=== PATIENT | male | born 1960 | race Caucasian/White ===

== ENCOUNTER 2019-07-10 18:48 | Observation (INO) ==
--- OUTSIDE RECORDS SUMMARY | 2019-07-10 18:51 | External Medical Summary | Continuity of Care Document ---
:1960 Author Name Bryan Davis Address Unavailable Unavailable , Care Team Providers Name Role Phone Unavailable Unavailable Unavailable Fredy JULES Unavailable Unavailable Problems Iron deficiency anemia (280.9) (D50.9) Allergies and Adverse Reactions Allergy history not documented Medications Medications not documented Procedures Procedures not documented Immunizations Immunizations not documented Plan of Treatment Planned Observations Planned Goals not documented Results No Known Results Results not documented
[2019-07-10 19:28] LABS: Basophils # (auto) 0.02 K/uL (0-0.2); Basophils % (auto) 0.3 %; Eosinophils # (auto) 0.05 K/uL (0-0.5); Eosinophils % (auto) 0.7 %; Hematocrit (blood only) 41.4 % (42-52); Immature Granulocytes # (auto) 0.03 K/uL (0.00-0.02); Immature Granulocytes % (auto) 0.4 %; Lymphocytes # (auto) 1.51 K/uL (1.2-3.4); Lymphocytes % (auto) 20.6 %; Mean Corpuscular Hemoglobin 26.4 pg (25-34); Mean Corpuscular Hgb Conc 33.8 g/dL (32-36); Mean Corpuscular Volume 78.1 fL (80-100); Mean Platelet Volume 10.7 fL (7.4-10.4); Monocytes # (auto) 0.57 K/uL (0.11-0.59); Monocytes % (auto) 7.8 %; Neutrophils # (auto) 5.15 K/uL (1.4-6.5); Neutrophils % (auto) 70.2 %; Platelet Count 199 K/uL (130-400); RDW Standard Deviation 42.2 fL (36.4-46.3); White Blood Count 7.33 K/uL (4.8-10.8)
--- NOTE | 2019-07-10 19:28 | Emergency Department Note ---
Impression & Plan Syncope, Hypomagnesemia, Dehydration ED Provider Note NAME: CHRIS STERLING AGE: 59 SEX: M : 1960 ARRIVES VIA: Walk-In INFORMANT: Patient, ED PROVIDER(S): Erich Espino MD Chief Complaint: Syncope HPI: He does present from a friend's home. 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 The patient was at a friend's home he had reported drinking 1 beer but stated that he had been drinking fluids throughout the day. Patient had been standing for time in the sun and subseq uently did have an episode of syncope. The patient states that he did not have any symptoms prior. Unsure as to whether or not there was any true shaking but was not told he had a seizure but he is unsure. The patient denies any tongue biting, bowel or bladder incontinence. No history of seizures. Patient denies any chest pain, headache, shortness of breath, lower extremity swelling. Patien t has no prior history of heart or lung disease. Non-smoker. Patient did drink 2 bottles of water prior to arrival. He has not taken any blood thinning medications. Patient does not complain of pain. ROS: See HPI for pertinent positives and negatives. A total of 10 systems were reviewed and otherwise negative. Past medical history: See below Surgical history: See below Social history: See below Physical Exam: GENERAL: Well appearing, well nourished, NAD, non-toxic. EYE EXAM: Normal conjunctiva. PERRL, no anisocoria and EOM's grossly intact w/o pain. NECK: Supple, no nuchal rigidity, no adenopathy, non-tender. No signs of meningismus. LUNGS: Clear to auscultation. Normal chest wall mechanics. HEART: NSR, no MRG. ABDOMEN: Abdomen soft, non-tender, normo-active bowel sounds, no masses, no rebound or guarding. BACK: No CVA TTP. SKIN: No rashes and no bruising. UPPER EXTREMITIES: Upper extremities are grossly normal. LOWER EXTREMITIES: Grossly normal, no edema. NEURO EXAM: A&O x3, cranial nerves II-XII grossly intact, normal speech, moves all 4 extremities on command w/o issue. Differential diagnoses: Vasovagal event, dehydration, infection, hypoglycemia, electrolyte abnormalities, cardiac sources, intracerebral event, pulmonary embolism, seizure, toxicologic, neurologic, as well as other pathologies. Course: Patient was seen and evaluated the bedside. Full history physical exam was performed. EKG: Indication: Syncope Normal sinus rhythm, rate of 86, normal intervals, normal axis, T wave flattening in the high lateral leads. No priors for comparison. Imaging Studies: Radiology results as stated below per my review in the radiologist's interpretation: Cardiac monitoring: An order was placed for continuous cardiac monitoring. The monitor shows a rate of 75 with sinus rhythm. MDM: Patient does present with concern for syncope. This may be somewhat orthostatic as well as positional. The patient is also been outside during 1 of the warmer days of the year thus far. Patient has a normal white count. Normal hemoglobin. Kidney function may show a slightly elevated creatinine at 1.45. EKG shows nonspecific ST and T wave abnormality. No priors for comparison. Troponin is not detectable. The patient's mag is a touch low. The patient did receive IV fluids. I discussed with the patient that given the slight EKG abnormality with no priors for comparison I do not know if the patient would be low risk. I did discuss that we could do observation admission and telemetry versus very close outpatient follow-up and repeat blood work. Patient is agreeable to it to inpatient treatment this time. I did speak with the on-call hospitalist who agreed to further evaluate treat the patient. Patient was subsequently admitted to medicine service. 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 Beliefs That Will Affect Care: None Current Living Situation: Spouse Other Information That Helps Us Care for You: No Feels Safe at Home: Yes Safety Concerns: Feels Safe At This Time Smoking Status: Never smoker Hx Alcohol Use: Yes Alcohol type: beer Hx Substance Use: No Allergies Allergies Allergy/AdvReac Type Severity Reaction Status Date / Time grass pollen Allergy Mild Sneezing Verified 07/10/19 19:35 DUST MITES Allergy Mild Sneezing Uncoded 07/10/19 19:35 Home Meds Home Medications Medication Instructions Recorded Confirmed losartan 50 mg PO QAM 07/10/19 07/10/19 metformin 750 mg PO BID 07/10/19 07/10/19 omeprazole 20 mg PO DAILYBB 07/10/19 07/10/19 Results & Data (ED) Vital Signs Vital Signs - 24 hr 07/10/19 18:53 07/10/19 19:21 07/10/19 19:30 Temperature 36.6 C Temperature Source Oral Pulse Rate 82 Pulse Rate [Finger] 81 Pulse Rhythm Regular Pulse Rhythm [Finger] Pulse Strength Normal Respiratory Rate 18 20 Respiratory Effort / Characteristics Non-Labored Spontaneous Non-Labored Spontaneous Respiratory Depth Normal Normal Respiratory Pattern Regular Blood Pressure 150/74 H Blood Pressure [Left Arm] 131/77 Blood Pressure Mean 99 Blood Pressure Mean [Left Arm] 95 Blood Pressure Position Sitting Pulse Oximetry 97 97 99 Oxygen Delivery Method Room Air Room Air Room Air Sepsis Recent Fever Within 48 Hours No Sepsis Action Taken by Nursing No Action Required 07/10/19 20:47 07/10/19 22:03 Temperature Temperature Source Pulse Rate Pulse Rate [Finger] 78 69 Pulse Rhythm Pulse Rhythm [Finger] Regular Pulse Strength Respiratory Rate 20 18 Respiratory Effort / Characteristics Respiratory Depth Normal Respiratory Pattern Blood Pressure Blood Pressure [Left Arm] 136/70 135/74 Blood Pressure Mean Blood Pressure Mean [Left Arm] 92 94 Blood Pressure Position Pulse Oximetry 96 95 Oxygen Delivery Method Room Air Sepsis Recent Fever Within 48 Hours Sepsis Action Taken by Correction Medications Current Medication List: was personally reviewed by me Laboratory Data Attestation: I reviewed the patient's lab results. Result diagrams: 07/10/19 19:07 07/10/19 19:07 Lab Results 07/10/19 07/10/19 07/10/19 Range/Units 19:07 19:07 19:07 WBC 7.33 (4.8-10.8) K/uL RBC 5.30 (4.7-6.1) M/uL Hgb 14.0 (14.0-18.0) g/dL Hct 41.4 L (42-52) % MCV 78.1 L (80-100) fL MCH 26.4 (25-34) pg MCHC 33.8 (32-36) g/dL RDW Std Deviation 42.2 (36.4-46.3) fL RDW Coeff of Yamil 15.0 H (11.5-14.5) % Plt Count 199 (130-400) K/uL MPV 10.7 H (7.4-10.4) fL Immature Gran % (Auto) 0.4 % Neut % (Auto) 70.2 % Lymph % (Auto) 20.6 % [place] % (Auto) 7.8 % Eos % (Auto) 0.7 % Baso % (Auto) 0.3 % Immature Gran # (Auto) 0.03 H (0.00-0.02) K/uL Neut # (Auto) 5.15 (1.4-6.5) K/uL Lymph # (Auto) 1.51 (1.2-3.4) K/uL [place] # (Auto) 0.57 (0.11-0.59) K/uL Eos # (Auto) 0.05 (0-0.5) K/uL Baso # (Auto) 0.02 (0-0.2) K/uL PT 10.9 (9.0-12.0) Seconds INR 1.0 (0.9-1.1) APTT 24.4 (21.0-31.0) Seconds PTT Ratio 0.9 Sodium 140 (136-145) mmol/L Potassium 3.9 (3.5-5.1) mmol/L Chloride 103 (98-107) mmol/L Carbon Dioxide 25 (21-32) mmol/L Anion Gap 12.0 H (3-11) BUN 14 (7-18) mg/dl Creatinine 1.45 H (0.6-1.4) mg/dl Est Cr Clr Drug Dosing 68.3 ml/min Est GFR ( Amer) 60.2 Est GFR (Non-Af Amer) 52.0 BUN/Creatinine Ratio 9.4 L (10-20) Glucose 118 H (70-99) mg/dl Calcium 9.1 (8.5-10.1) mg/dl Magnesium 1.7 L (1.8-2.4) mg/dl Total Bilirubin 0.4 (0.2-1) mg/dl AST 17 (15-37) U/L ALT 37 (12-78) U/L Alkaline Phosphatase 87 (45-117) U/L Troponin I < 0.015 (0-0.045) ng/ml Total Protein 8.8 H (6.4-8.2) gm/dl Albumin 4.0 (3.4-5.0) gm/dl Globulin 4.8 H (2.5-4.0) gm/dl Albumin/Globulin Ratio 0.8 L (0.9-2) TSH 2.920 (0.300-4.500) uIu/ml Urine Color Urine Appearance (Clear) Urine pH (4.5-7.5) Ur Specific [place] (1.000-1.030) Urine Protein (Negative) Urine Glucose (UA) (Negative) Urine Ketones (Negative) Urine Blood (Negative) Urine Nitrite (Negative) Urine Bilirubin (Negative) Urine Urobilinogen (Negative) Ur Leukocyte Esterase (Negative) 07/10/19 07/10/19 Range/Units 19:55 21:47 WBC (4.8-10.8) K/uL RBC (4.7-6.1) M/uL Hgb (14.0-18.0) g/dL Hct (42-52) % MCV (80-100) fL MCH (25-34) pg MCHC (32-36) g/dL RDW Std Deviation (36.4-46.3) fL RDW Coeff of Yamil (11.5-14.5) % Plt Count (130-400) K/uL MPV (7.4-10.4) fL Immature Gran % (Auto) % Neut % (Auto) % Lymph % (Auto) % [place] % (Auto) % Eos % (Auto) % Baso % (Auto) % Immature Gran # (Auto) (0.00-0.02) K/uL Neut # (Auto) (1.4-6.5) K/uL Lymph # (Auto) (1.2-3.4) K/uL [place] # (Auto) (0.11-0.59) K/uL Eos # (Auto) (0-0.5) K/uL Baso # (Auto) (0-0.2) K/uL PT (9.0-12.0) Seconds INR (0.9-1.1) APTT (21.0-31.0) Seconds PTT Ratio Sodium (136-145) mmol/L Potassium (3.5-5.1) mmol/L Chloride (98-107) mmol/L Carbon Dioxide (21-32) mmol/L Anion Gap (3-11) BUN (7-18) mg/dl Creatinine (0.6-1.4) mg/dl Est Cr Clr Drug Dosing ml/min Est GFR ( Amer) Est GFR (Non-Af Amer) BUN/Creatinine Ratio (10-20) Glucose (70-99) mg/dl Calcium (8.5-10.1) mg/dl Magnesium (1.8-2.4) mg/dl Total Bilirubin (0.2-1) mg/dl AST (15-37) U/L ALT (12-78) U/L Alkaline Phosphatase (45-117) U/L Troponin I < 0.015 (0-0.045) ng/ml Total Protein (6.4-8.2) gm/dl Albumin (3.4-5.0) gm/dl Globulin (2.5-4.0) gm/dl Albumin/Globulin Ratio (0.9-2) TSH (0.300-4.500) uIu/ml Urine Color Yellow Urine Appearance Clear (Clear) Urine pH 5.0 (4.5-7.5) Ur Specific [place] 1.022 (1.000-1.030) Urine Protein Negative (Negative) Urine Glucose (UA) Negative (Negative) Urine Ketones Trace H (Negative) Urine Blood Negative (Negative) Urine Nitrite Negative (Negative) Urine Bilirubin Negative (Negative) Urine Urobilinogen Negative (Negative) Ur Leukocyte Esterase Negative (Negative) Administered Medications Magnesium Sulfate/Dextrose (Magnesium Sulfate / D5w) 1 gm in 100 mls @ 50 mls/hr IV Q2H VIC Stop: 07/11/19 02:44 Last Infusion: 07/11/19 00:51 Dose: 0 mls/hr Documented by: [id number] Admin: 07/10/19 23:48 Dose: 100 mls/hr Documented by: [id number] Infusion: 07/10/19 23:47 Dose: 0 mls/hr Documented by: [id number] Admin: 07/10/19 22:56 Dose: 50 mls/hr Documented by: [id number] Discontinued Medications Sodium Chloride (Nss 1000ml) 1,000 mls @ 999 mls/hr IV .Q1H1M VIC Stop: 05/23/20 20:30 Last Infusion: 07/10/19 20:24 Dose: 0 mls/hr Documented by: [id number] Admin: 07/10/19 19:23 Dose: 999 mls/hr Documented by: [id number] Discharge Plan Visit Data *Final* Discharge Date/Time: 07/11/19 00:08 Chief Complaint: Syncope (Near Syncope) Stated Complaint: SYNCOPE ED Provider: Erich Espino Discharge Problem: Syncope, Hypomagnesemia, Dehydration Patient Disposition: Admitted As Inpatient Discharge Instructions Interventions: ED Discharge Assessment Last Done: 07/11/19 00:08 Discharge Problem: Syncope Qualifiers: Syncope type: unspecified Qualified Code(s): R55 - Syncope and collapse
[2019-07-10] MEDS ORDERED: SODIUM CHLORIDE 0.9% 1000ML 1,000 ML IV SCH (19:30)
[2019-07-10 19:37] LABS: Alanine Aminotransferase 37 U/L (12-78); Aspartate Aminotransferase 17 U/L (15-37); BUN Creatinine Ratio 9.4 (10-20); Blood Urea Nitrogen 14 mg/dl (7-18); Calcium 9.1 mg/dl (8.5-10.1); Carbon Dioxide 25 mmol/L (21-32); Chloride 103 mmol/L (98-107); Creatinine Clr Calc Pharmacy 68.3 ml/min; Est GFR (African American) 60.2; Glucose 118 mg/dl (70-99); Magnesium 1.7 mg/dl (1.8-2.4); Potassium 3.9 mmol/L (3.5-5.1); Sodium 140 mmol/L (136-145)
[2019-07-10 19:39] LABS: Partial Thromboplastin Ratio 0.9; Partial Thromboplastin Time 24.4 Seconds (21.0-31.0); Prothrombin Time 10.9 Seconds (9.0-12.0)
[2019-07-10 19:48] LABS: Albumin Globulin Ratio 0.8 (0.9-2); Alkaline Phosphatase 87 U/L (45-117); Bilirubin,Total 0.4 mg/dl (0.2-1); Globulin 4.8 gm/dl (2.5-4.0); Total Protein 8.8 gm/dl (6.4-8.2); Troponin I < 0.015 ng/ml (0-0.045)
[2019-07-10 20:05] LABS: Appearance Urine Clear (Clear); Bilirubin Urine Negative (Negative); Blood Urine Negative (Negative); Color Urine Yellow; Glucose Urine UA Negative (Negative); Ketones Urine Trace (Negative); Leukocyte Esterase Urine Negative (Negative); Nitrite Urine Negative (Negative); Protein Urine Negative (Negative); Specific Gravity Urine 1.022 (1.000-1.030); Urobilinogen Urine Negative (Negative)
--- NOTE | 2019-07-10 20:48 | CT Scan Report ---
HEAD CT NONCONTRAST CT DOSE: 537.48 mGy.cm HISTORY: ?seizures s/p syncope TECHNIQUE: Multiaxial CT images of the head were performed without the use of intravenous contrast. A utomated exposure control was utilized for this study. A dose lowering technique was utilized adheri ng to the principles of ALARA. Comparison: None. Findings: The paranasal sinuses and mastoid air cells are clear. The calvarium and skull base are int act. The ventricles and sulci are within normal limits. There is no mass, hematoma, midline shift, or acute infarct. Impression: No acute intracranial abnormality. ACT 112: Negative or not required by law. Electronically signed by: Victor Manuel Rushing M.D. 07/10/2019 8:47 PM
[2019-07-10] MEDS: MAGNESIUM SULFATE / D5W 1 GM/100 ML BAG IV SCH ×2 (22:56→23:48)
--- NOTE | 2019-07-10 23:45 | History & Physical Report ---
Date of Service July 10, 2019 Assessment & Plan (1) Syncope: Episode of syncope- Likely secondary to volume depletion associated with excessive fluid losses via perspiration, and via use of caffeine and alcohol. Admit to monitored bed overnight for observation, to follow-up for possible cardiac cause arrhythmia etc. Present on Admission?: Yes (2) Acute kidney injury: Creatinine 1.45 upon admission, with repeat 5 hours later improved to 1.24 Present on Admission?: Yes (3) Dehydration: Received 1 L of normal saline in ED, patient will continue to adequately hydrate orally tonight Present on Admission?: Yes (4) Hypomagnesemia: Give IV replacement, and recheck in a.m. Present on Admission?: Yes (5) Diabetes mellitus: Hold metformin. Place and Accu-Cheks before meals and at bedtime with NovoLog coverage per scale. Check hemoglobin A1c Present on Admission?: Yes (6) Hypertension: Holding antihypertensive losartan due to borderline blood pressure and acute kidney injury Present on Admission?: Yes (7) GERD (gastroesophageal reflux disease): Omeprazole 20 mg p.o. daily Present on Admission?: Yes History of Present Illness Chief Complaint: The patient presents to the emergency department for assessment of a syncopal episode that occurred prior to arrival. Primary Care Provider: Jerel Medina MD The patient is a 59-year-old male with a past medical history including hyperte nsion, GERD, and diabetes mellitus. He presents to the emergency department after a an episode of syncope that occurred earlier today prior to arrival. The patient reports he had been working outdoors moving [employer], at a friend's house, and throughout the day had been drinking 10 cups of coffee, and 2 beers. He then was standing in the sun, and had an episode of syncope. No seizure type symptoms were noted, and when the patient came to, he denies any persistent disorientation, and no loss of bowel or bladder control. He has not had any previous episodes of syncope. He has not had any recent travels or sick exposures. Allergies Allergy/AdvReac Type Severity Reaction Status Date / Time grass pollen Allergy Mild Sneezing Verified 07/10/19 19:35 DUST MITES Allergy Mild Sneezing Uncoded 07/10/19 19:35 Home Medications Home Medications Medication Instructions Recorded Confirmed Type losartan 50 mg PO QAM 07/10/19 07/10/19 History metformin 750 mg PO BID 07/10/19 07/10/19 History omeprazole 20 mg PO DAILYBB 07/10/19 07/10/19 History Past Med/Surg History Medical History GERD (gastroesophageal reflux disease) HLD (hyperlipidemia) Hypertension Surgical History No pertinent past surgical history Social History Preferred Language: Malay Communication Ability: Effective Tester Operator Required: No Beliefs That Will Affect Care: None Current Living Situation: Spouse Other Information That Helps Us Care for You: No Feels Safe at Home: Yes Safety Concerns: Feels Safe At This Time Smoking Status: Never smoker Hx Alcohol Use: Yes Alcohol type: beer Hx Substance Use: No Review of Systems Review of Systems: The patient denies chest pain, palpitations, shortness of breath, dyspnea on exertion, cough, lower extremity swelling, sore throat, fevers, chills, sweats, fatigue, nausea, vomiting, diarrhea , constipation, abdominal pain, pelvic pain, blood in urine or stool, dysuria, urinary frequency or urgency, headache, rash, abnormal bruising or bleeding, imbalance, focal or generalized weakness, numbness or tingling in arms or legs, generalized arthralgias or myalgias, back or neck pain, or night sweats. The review of systems is otherwise negative other than for that already noted above, and at least 10 systems have been reviewed. Physical Exam Physical Exam: The patient is awake, alert and oriented 3, well developed and well nourished, normocephalic and atraumatic, lying in bed and in no acute distress. HEENT--PERRL, EOMI, mucous membranes and oropharynx normal. Neck--supple. No JVD. No bruits. Thyroid normal, trachea midline, no adenopath y. Heart--normal S1 and S2. No murmurs, rubs or gallops. Lungs--clear bilaterally, no respiratory distress, no accessory muscle use. Abdomen--normal bowel sounds and soft. Nontender. Nondistended. Extremities--no cyanosis or clubbing. No edema. Dermatologic--normal skin turgor, normal color, no abnormal lymph nodes, no rash. Neurologic--cranial nerves II through XII grossly intact. Rheumatologic--normal range of motion. Psychiatric--normal affect. Results & Data Results & Data ([facility]) Vital Signs (Past 12 Hours) Vital Signs Temp Pulse Pulse Resp BP BP Pulse Ox 07/10/19 23:00 72 18 147/82 H 94 07/10/19 22:03 69 18 135/74 95 07/10/19 20:47 78 20 136/70 96 07/10/19 19:30 81 20 131/77 99 07/10/19 19:21 97 07/10/19 18:53 97.9 F 82 18 150/74 H 97 Laboratory Results Laboratory Results WBC 7.21 K/uL (4.8-10.8) 07/11/19 01:19 RBC 4.95 M/uL (4.7-6.1) 07/11/19 01:19 Hgb 12.8 g/dL (14.0-18.0) L 07/11/19 01:19 Hct 39.0 % (42-52) L 07/11/19 01:19 MCV 78.8 fL (80-100) L 07/11/19 01:19 MCH 25.9 pg (25-34) 07/11/19 01:19 MCHC 32.8 g/dL (32-36) 07/11/19 01:19 RDW Std Deviation 43.3 fL (36.4-46.3) 07/11/19 01:19 RDW Coeff of Yamil 15.1 % (11.5-14.5) H 07/11/19 01:19 Plt Count 173 K/uL (130-400) 07/11/19 01:19 MPV 9.9 fL (7.4-10.4) 07/11/19 01:19 Immature Gran % (Auto) 0.3 % 07/11/19 01:19 Neut % (Auto) 59.5 % 07/11/19 01:19 Lymph % (Auto) 33.0 % 07/11/19 01:19 [place] % (Auto) 5.7 % 07/11/19 01:19 Eos % (Auto) 1.2 % 07/11/19 01:19 Baso % (Auto) 0.3 % 07/11/19 01:19 Immature Gran # (Auto) 0.02 K/uL (0.00-0.02) 07/11/19 01:19 Neut # (Auto) 4.29 K/uL (1.4-6.5) 07/11/19 01:19 Lymph # (Auto) 2.38 K/uL (1.2-3.4) 07/11/19 01:19 [place] # (Auto) 0.41 K/uL (0.11-0.59) 07/11/19 01:19 Eos # (Auto) 0.09 K/uL (0-0.5) 07/11/19 01:19 Baso # (Auto) 0.02 K/uL (0-0.2) 07/11/19 01:19 PT 10.5 Seconds (9.0-12.0) 07/11/19 01:19 INR 1.0 (0.9-1.1) 07/11/19 01:19 APTT 25.4 Seconds (21.0-31.0) 07/11/19 01:19 PTT Ratio 0.9 07/11/19 01:19 Sodium 139 mmol/L (136-145) 07/11/19 01:19 Potassium 4.6 mmol/L (3.5-5.1) D 07/11/19 01:19 Chloride 105 mmol/L (98-107) 07/11/19 01:19 Carbon Dioxide 28 mmol/L (21-32) 07/11/19 01:19 Anion Gap 6.0 (3-11) 07/11/19 01:19 BUN 13 mg/dl (7-18) 07/11/19 01:19 Creatinine 1.24 mg/dl (0.6-1.4) 07/11/19 01:19 Est Cr Clr Drug Dosing 79.7 ml/min 07/11/19 01:19 Est GFR ( Amer) 72.8 07/11/19 01:19 Est GFR (Non-Af Amer) 62.8 07/11/19 01:19 BUN/Creatinine Ratio 10.7 (10-20) 07/11/19 01:19 Glucose 136 mg/dl (70-99) H 07/11/19 01:19 Calcium 8.8 mg/dl (8.5-10.1) 07/11/19 01:19 Magnesium 2.4 mg/dl (1.8-2.4) 07/11/19 01:19 Total Bilirubin 0.3 mg/dl (0.2-1) 07/11/19 01:19 AST 17 U/L (15-37) 07/11/19 01:19 ALT 32 U/L (12-78) 07/11/19 01:19 Alkaline Phosphatase 82 U/L (45-117) 07/11/19 01:19 Troponin I < 0.015 ng/ml (0-0.045) 07/11/19 01:19 Total Protein 7.7 gm/dl (6.4-8.2) 07/11/19 01:19 Albumin 3.5 gm/dl (3.4-5.0) 07/11/19 01:19 Globulin 4.2 gm/dl (2.5-4.0) H 07/11/19 01:19 Albumin/Globulin Ratio 0.8 (0.9-2) L 07/11/19 01:19 TSH 2.920 uIu/ml (0.300-4.500) 07/10/19 19:07 Urine Color Yellow 07/10/19 19:55 Urine Appearance Clear (Clear) 07/10/19 19:55 Urine pH 5.0 (4.5-7.5) 07/10/19 19:55 Ur Specific [place] 1.022 (1.000-1.030) 07/10/19 19:55 Urine Protein Negative (Negative) 07/10/19 19:55 Urine Glucose (UA) Negative (Negative) 07/10/19 19:55 Urine Ketones Trace (Negative) H 07/10/19 19:55 Urine Blood Negative (Negative) 07/10/19 19:55 Urine Nitrite Negative (Negative) 07/10/19 19:55 Urine Bilirubin Negative (Negative) 07/10/19 19:55 Urine Urobilinogen Negative (Negative) 07/10/19 19:55 Ur Leukocyte Esterase Negative (Negative) 07/10/19 19:55 Diagnostic Findings [facility], [place] [phone] CT Scan Report Patient: CHRIS STERLING EAdmit Date: 07/10/19 MR#: [id number]: [address] Acct ID:[id number]: Date: 1960City Zip: [place] [address] Age: 59Location: ED Sex: M Room/Bed: Att Phy:Diagnosis: SYNCOPE Jennifer Phy: Adam Jerel DanielJef, MDService Date: 07/10/19 Fam Phy:Interpreting Phy: Victor Manuel Rushing MD Admit Phy: Ordering Phy: Erich Espino MD cc: ~ HEAD CT NONCONTRAST CT DOSE: 537.48 mGy.cm HISTORY: ?seizures s/p syncope TECHNIQUE: Multiaxial CT images of the head were performed without the use of intravenous contrast. Automated exposure control was utilized for this study. A dose lowering technique was utilized adhering to the principles of ALARA. Comparison: None. Findings: The paranasal sinuses and mastoid air cells are clear. The calvarium and skull base are intact. The ventricles and sulci are within normal limits. There is no mass, hematoma, midline shift, or acute infarct. Impression: No acute intracranial abnormality. ACT 112: Negative or not required by law. Electronically signed by: Victor Manuel Rushing M.D. 07/10/2019 8:47 PM Dictated: 07/10/192042 Transcribed: 07/10/192042 Code Status & VTE Plan Code Status Full code VTE Prophylaxis Plan VTE Prophylaxis will be ordered: Yes PG Care Time/CCT Total # of Minutes Spent Total Time Spent with Patient: Total time spent is greater than 50% in coordination of care (as documented) at patient's floor/unit and/or counseling patient: Coding Level of Care Code 38156 OBS Care - Level 3 Diagnoses Syncope R55 Syncope type: unspecified Acute kidney injury N17.9 Dehydration E86.0 Hypomagnesemia E83.42 Diabetes mellitus E11.9 Hypertension I10 GERD (gastroesophageal reflux disease) K21.9 (1) Syncope Syncope type: unspecified Qualified Code(s): R55 - Syncope and collapse
[2019-07-11] MEDS ORDERED: CARBOHYDRATES FOR HYPOGLYCEMIA PO PRN (00:49)
[2019-07-11] MEDS ORDERED: GLUCAGON FOR INJ 1 MG VIAL SQ PRN (00:49)
[2019-07-11] MEDS ORDERED: GLUCOSE 10 TABS/TUBE PO PRN (00:49)
[2019-07-11] MEDS ORDERED: ACETAMINOPHEN 325 MG TAB PO PRN (00:49)
[2019-07-11] MEDS ORDERED: ONDANSETRON INJ 2 MG/ML 2 ML VIAL IV PRN (00:49)
[2019-07-11] MEDS ORDERED: DEXTROSE 50% 50 ML SYRINGE IV PRN (00:49)
[2019-07-11] MEDS ORDERED: MAGNESIUM HYDROXIDE SUSP 30 ML UDC PO PRN (00:49)
[2019-07-11] MEDS ORDERED: ALUMINUM/MAGNESIUM SUSP 30 ML UDC PO PRN (00:49)
[2019-07-11] MEDS ORDERED: GLUCOSE 40% GEL 15 GM TUBE PO PRN (00:49)
[2019-07-11 01:43] LABS: Basophils # (auto) 0.02 K/uL (0-0.2); Basophils % (auto) 0.3 %; Eosinophils # (auto) 0.09 K/uL (0-0.5); Eosinophils % (auto) 1.2 %; Hemoglobin 12.8 g/dL (14.0-18.0); Immature Granulocytes # (auto) 0.02 K/uL (0.00-0.02); Immature Granulocytes % (auto) 0.3 %; Lymphocytes # (auto) 2.38 K/uL (1.2-3.4); Mean Corpuscular Hemoglobin 25.9 pg (25-34); Mean Corpuscular Hgb Conc 32.8 g/dL (32-36); Mean Corpuscular Volume 78.8 fL (80-100); Mean Platelet Volume 9.9 fL (7.4-10.4); Monocytes # (auto) 0.41 K/uL (0.11-0.59); Monocytes % (auto) 5.7 %; Neutrophils # (auto) 4.29 K/uL (1.4-6.5); Neutrophils % (auto) 59.5 %; Platelet Count 173 K/uL (130-400); RDW Coefficient of Variation 15.1 % (11.5-14.5); RDW Standard Deviation 43.3 fL (36.4-46.3); Red Blood Count 4.95 M/uL (4.7-6.1); White Blood Count 7.21 K/uL (4.8-10.8)
[2019-07-11 02:02] LABS: Partial Thromboplastin Ratio 0.9; Partial Thromboplastin Time 25.4 Seconds (21.0-31.0); Prothrombin Time 10.5 Seconds (9.0-12.0)
[2019-07-11 02:03] LABS: Albumin Level 3.5 gm/dl (3.4-5.0); BUN Creatinine Ratio 10.7 (10-20); Calcium 8.8 mg/dl (8.5-10.1); Creatinine Clr Calc Pharmacy 79.7 ml/min; Est GFR (African American) 72.8; Est GFR (Non-African American) 62.8; Magnesium 2.4 mg/dl (1.8-2.4); Potassium 4.6 mmol/L (3.5-5.1)
[2019-07-11 02:08] LABS: Albumin Globulin Ratio 0.8 (0.9-2); Bilirubin,Total 0.3 mg/dl (0.2-1); Globulin 4.2 gm/dl (2.5-4.0); Total Protein 7.7 gm/dl (6.4-8.2)
[2019-07-11] MEDS ORDERED: PANTOprazole 40 MG TAB PO SCH (06:30)
[2019-07-11] MEDS ORDERED: ASPIRIN 81 MG ECTAB PO SCH (09:00)
[2019-07-11] MEDS: INSULIN ASPART 100 UNITS/ML 3 ML PEN SC SCH ×2 (09:03→12:29)
--- NOTE | 2019-07-11 09:49 | Electrocardiogram Report ---
Test Reason : Blood Pressure : / mmHG Vent. Rate : 086 BPM Atrial Rate : 086 BPM P-R Int : 148 ms QRS Dur : 092 ms QT Int : 350 ms P-R-T Axes : 065 052 068 degrees QTc Int : 418 ms Normal sinus rhythm Possible Left atrial enlargement Otherwise normal ECG No previous ECGs available Confirmed by Peter Keene ([id number]) on 07/11/2019 9:49:11 AM Referred By: REFERRED SELF Confirmed By:Peter Keene
--- NOTE | 2019-07-11 10:09 | Electrocardiogram Report ---
Test Reason : Blood Pressure : / mmHG Vent. Rate : 069 BPM Atrial Rate : 069 BPM P-R Int : 154 ms QRS Dur : 102 ms QT Int : 404 ms P-R-T Axes : 069 056 086 degrees QTc Int : 432 ms Normal sinus rhythm Nonspecific ST and T wave abnormality Abnormal ECG When compared with ECG of 10-JUL-2019 19:01, (unconfirmed) Nonspecific T wave abnormality, worse in Anterolateral leads Confirmed by Peter Keene ([id number]) on 07/11/2019 10:09:45 AM Referred By: REFERRED SELF Confirmed By:Peter Keene
[2019-07-11 11:21] LABS: Estimated Average Glucose 137 mg/dl; Hemoglobin A1C 6.4 % (4.5-5.6)
--- NOTE | 2019-07-11 14:05 | Discharge Summary ---
Date of Service July 11, 2019 Admission HPI Per Admitting Provider The patient is a 59-year-old male with a past medical history including hypertension, GERD, and diabetes mellitus. He presents to the emergency department after a an episode of syncope that occurred earlier today prior to arrival. The patient reports he had been working outdoors moving [employer], at a friend's house, and throughout the day had been drinking 10 cups of coffee, and 2 beers. He then was standing in the sun, and had an episode of syncope. No seizure type symptoms were noted, and when the patient came to, he denies any persistent disorientation, and no loss of bowel or bladder control. He has not had any previous episodes of syncope. He has not had any recent travels or sick exposures. Principal Diagnosis Syncope Discharge Exam Constitutional WD/WN, vitals as above Eyes PERRL, conjunctivae normal, anicteric sclerae ENMT external ear and nose normal, oropharynx normal Neck trachea midline, no thyromegaly normal visual inspection and trachea midline; no tracheal deviation Respiratory normal respiratory effort; no respiratory distress, no labored breathing, no retractions and does not use accessory muscles Cardiovascular RRR, no murmur, no edema Rate/Rhythm: regular rate and regular rhythm Gastrointestinal (Abdomen) Inspection/Auscultation: abdomen normal to inspection; abdomen not distended Musculoskeletal no cyanosis or clubbing, extremities motor strength 5/5 Skin no rashes, warm and dry Neurologic normal touch/pain/proprioception Psychiatric A+Ox3, euthymic affect Discharge Data Allergies Allergy/AdvReac Type Severity Reaction Status Date / Time grass pollen Allergy Mild Sneezing Verified 07/10/19 19:35 DUST MITES Allergy Mild Sneezing Uncoded 07/10/19 19:35 Consultations 07/10/19 23:00 ED Decision to Admit Stat 07/11/19 00:49 Consult Case Management - Discharge Planning Routine Ordered Studies 07/10/19 20:10 CT head/brain wo con Stat Serial cardiac troponin negative. Resting echocardiogram demonstrated ejection fraction of 65 to 70% without left ventricular wall motion abnormalities. Hospital Course (1) Syncope: The patient was served on the telemetry unit overnight. He had no dysrhythmias during his observation. The patient was ambulatory about the unit without lightheadedness or dizziness. He had no chest pain or shortness of breath. No recurrence of his syncope or presyncopal type symptoms. Serial troponin markers were negative. His magnesium was low on admission at 1.7, normalized the next morning at 2.4. His creatinine was 1.45 on admission, normalized to 1.24 the next morning. Hemoglobin A1c was 6.4%. Resting echocardiogram demonstrated preserved left ventricular function without wall motion abnormalities. Suspicion is that the patient was dehydrated given his coffee intake as well as some alcohol with a rather large meal. Discussed gradual reduction of his coffee intake and appropriately hydrating especially when working outside in warm days. I did recommend following up with his family physician in the next 1 to 2 weeks to discuss if any additional testing is needed. He will limit any activities but we did discuss avoiding any heavy exertion for the next several days, staying well-hydrated, and avoiding working during the hottest parts of the day. Total Time Total Time Spent Total Time Spent (In Minutes): 30 Total Time Includes: Examination of the Patient, Discharge Planning, Medication Reconciliation and Communication With Other Providers Discharge Plan Discharge Items Patient Disposition: Home - Self-Care Reason For Visit: SYNCOPE Discharge Diagnosis: Syncope Condition on Discharge: Good Activity: Resume your previous activity Activity Comment: Gradual increase activity as tolerated. Be careful in times of heat. We discussed maintaining proper hydration as well as the diuretic effect of coffee. Lifting: Gradually increase as tolerated Bathing: No limitations Sexual Activity: When tolerated Exercise/Sports: Gradually increase as tolerated Driving/Machine Use: No limitations Weightbearing: Full weightbearing Non-emergency contact: Primary Care Provider Call non-emergency contact if: you have any medication questions, your symptoms worsen, your pain is not controlled, your pain is worsening, your pain is unusual for you and your pain is concerning for you Follow-up/Referrals: Jerel Medina MD [Primary Care Provider] - Diet: Carb Consistent or DM2 Addtl Attending Provider Instructions: Follow-up with primary care physician in 1 to 2 weeks. Pending Studies at Discharge: No Stand-Alone Forms: My [employer], Smoking Cessation Medications and DC Order Prescriptions: Continued losartan 50 mg Tablet 50 mg PO QAM RF: 0 omeprazole 20 mg Capsule,Delayed Release(Dr/Ec) 20 mg PO DAILYBB RF: 0 metformin 750 mg Tablet Extended Release 24 Hr 750 mg PO BID RF: 0 Discharge Orders: Discharge Order (Routine); Ordered 07/11/19 Ordered By: Sukumar Steel/Other Patient Handouts: Causes of Syncope, Dehydration Admission Data Admit Date/Time: 07/10/19 22:43 Attending Provider: Sukumar Bundy Admit Provider: Rigo Godwin Primary Care Provider: Jerel Medina. Other Providers: Rigo Godwin
== END 2019-07-11 14:35 | disposition home or self-care (01) ==
LOC: ED 18:48 → 2S 18:48 → SUATTDRO 22:43 → 2S 07-11 00:08

== ENCOUNTER 2021-08-20 22:14 | Inpatient (IN) ==
[2021-08-20] MEDS ORDERED: ASPIRIN CHEW 324 MG ONE (22:23)
[2021-08-20] MEDS ORDERED: NITROGLYCERIN SL 0.4 MG/TAB TAB ONE (22:24)
[2021-08-20] MEDS ORDERED: NITROGLYCERIN SL 0.4 MG/TAB TAB SL PRN (22:24)
[2021-08-20] MEDS ORDERED: ASPIRIN CHEW 324 MG PO STA (22:24)
[2021-08-20] MEDS ORDERED: NITROGLYCERIN SL 0.4 MG/TAB TAB SL STA (22:45)
[2021-08-20 22:46] LABS: Basophils # (auto) 0.02 K/uL (0-0.2); Basophils % (auto) 0.2 %; Eosinophils % (auto) 1.1 %; Hematocrit (blood only) 37.2 % (42-52); Hemoglobin 11.7 g/dL (14.0-18.0); Immature Granulocytes # (auto) 0.01 K/uL (0.00-0.02); Immature Granulocytes % (auto) 0.1 %; Lymphocytes # (auto) 2.66 K/uL (1.2-3.4); Lymphocytes % (auto) 29.7 %; Mean Corpuscular Hemoglobin 22.7 pg (25-34); Mean Corpuscular Hgb Conc 31.5 g/dL (32-36); Mean Corpuscular Volume 72.2 fL (80-100); Mean Platelet Volume 10.3 fL (7.4-10.4); Monocytes # (auto) 0.84 K/uL (0.11-0.59); Monocytes % (auto) 9.4 %; Neutrophils # (auto) 5.33 K/uL (1.4-6.5); Neutrophils % (auto) 59.5 %; Platelet Count 305 K/uL (130-400); RDW Standard Deviation 39.9 fL (36.4-46.3); Red Blood Count 5.15 M/uL (4.7-6.1); White Blood Count 8.96 K/uL (4.8-10.8)
[2021-08-20] MEDS ORDERED: fentaNYL citrate 100 MCG/2 ML VIAL ONE (22:47)
[2021-08-20] MEDS ORDERED: niCARdipine HCL INJ 2.5 MG/ML 10 ML AMP ONE (22:47)
[2021-08-20] MEDS ORDERED: MIDAZOLAM HCL 1 MG/ML 2ML VIAL ONE (22:47)
[2021-08-20] MEDS ORDERED: HEPARIN (PORCINE) 1000 UNIT/ML 10 ML (CATH LAB USE ONLY) ONE (22:47)
[2021-08-20] MEDS ORDERED: NITROGLYCERIN/D5W 100MCG/ML 20ML SYR ONE (22:48)
[2021-08-20] MEDS ORDERED: HEPARIN SOD (PORCINE) 1000 UNIT/ML ONE (22:50)
[2021-08-20] MEDS ORDERED: TICAGRELOR 90 MG TAB PO ONE (22:50)
[2021-08-20] MEDS ORDERED: Heparin IV Adult Wt-Based Standard WITH Bolus Protocol IV STA (22:50)
[2021-08-20] MEDS ORDERED: TICAGRELOR 90 MG TAB ONE (22:51)
[2021-08-20] MEDS ORDERED: HEPARIN SOD (PORCINE) 1000 UNIT/ML IV ONE ×2 (22:54→23:05)
[2021-08-20 22:59] LABS: Partial Thromboplastin Ratio 0.9; Partial Thromboplastin Time 25.6 Seconds (21.0-31.0); Prothrombin Time 10.6 Seconds (9.0-12.0)
--- NOTE | 2021-08-20 23:01 | Pre Anesthesia Assessment ---
Date of Service August 20, 2021 Pre Sedation Assessment Vital Signs Temp Pulse Resp BP Pulse Ox 08/20/21 22:45 88 20 163/114 H 97 08/20/21 22:41 88 16 168/102 H 08/20/21 22:34 100 H 20 181/111 H 08/20/21 22:30 106 H 20 184/125 H 93 08/20/21 22:27 104 H 16 194/137 H 92 08/20/21 22:16 98.2 F 94 H 16 198/121 H 95 Cardiovascular RRR, no murmur, no edema Respiratory normal respiratory effort, lungs clear to auscultation Pre-Sedation Airway Assessment Smoking Status: Never smoker Hx Sleep Apnea: No Hx Difficult Intubation: No Short, Thick Neck: No Thyromental Distance: > or= 3.5 Finger Breadths Oral Cavity: + WNL Mallampati Class: III ASA: ASA4 Procedure Planning Contraindications for Sedation: none Current Medications Reviewed: Yes Notes The planned sedation has been discussed with the patient. Informed Consent was obtained. I have identified the patient, determined the appropriateness of sedation and have assessed the patient immediately prior to the procedure. All medicine(s) and interventions are by my order.
[2021-08-20 23:05] LABS: Albumin Globulin Ratio 1.3 (0.9-2); Albumin Level 4.4 gm/dl (3.4-5.0); BUN Creatinine Ratio 9.9 (10-20); Bilirubin,Total 0.3 mg/dl (0.2-1.0); Calcium 9.2 mg/dl (8.5-10.1); Creatinine Clr Calc Pharmacy 88.9 ml/min; Est GFR (Non-African American) 70.8 ml/min; Globulin 3.5 gm/dl (2.5-4.0); Magnesium 1.7 mg/dl (1.7-2.4); Potassium 3.8 mmol/L (3.5-5.1); Total Protein 7.9 gm/dl (6.0-8.3)
--- NOTE | 2021-08-20 23:05 | Cardiology Consultation ---
Date of Consultation August 20, 2021 Assessment & Plan (1) STEMI (ST elevation myocardial infarction): Presentation consistent with anterior STEMI and recommend proceeding with emergent cardiac catheterization and likely primary PCI. No apparent contraindications to procedure. Discussed risks, benefits, alternatives of procedure with patient and they are willing to proceed. Given IV heparin and ticagrelor 180 mg in the ED. Further recommendations pending findings of coronary angiography. History of Present Illness Attending Physician: Koko Covington MD History of Present Illness 61-year-old man here with acute chest pain and ECG concerning for acute MA. Patient seen emergently in the ED after heart alert activated on arrival. No prior cardiac history. Previously admitted briefly 06/2019 with an episode of syncope. Normal LV function on echo with no valve pathology. Holter monitor unremarkable. Episode thought secondary to dehydration. Cardiac risk factors include type 2 diabetes on metformin, hypertension. Other medical issues include GERD. Reports intermittent chest pain over the last 2 days with exertion. Last night had chest pain that intermittently woke him from sleep. Today had chest pain with minimal exertion, just walking. This evening was sitting watching TV when developed persistent, severe chest pain radiating down his left arm. Denies similar symptoms in the past. On arrival active chest pain which improved with 3 sublingual nitroglycerin. Hypertensive to the 190s. EKG showed sinus rhythm with anterior ST elevations. Family history: Father from stroke. Mother alive, 90 years old has a pacemaker and hypertension. Social history: . Works from home for [employer]. Grown son. Oc casional cigar but denies regular smoking. Social drinking. Allergies Allergy/AdvReac Type Severity Reaction Status Date / Time grass pollen Allergy Mild Sneezing Verified 08/20/21 22:27 DUST MITES Allergy Mild Sneezing Uncoded 08/20/21 22:27 Home Medications Medication Instructions Recorded Confirmed Type losartan 50 mg tablet 50 mg PO QAM 07/10/19 08/20/21 History metformin 750 mg tablet,extended 750 mg PO BID 07/10/19 08/20/21 History release 24 hr omeprazole 20 mg capsule,delayed 20 mg PO DAILYBB 07/10/19 08/20/21 History release Patient History Medical History (Updated 08/20/21 @ 23:05 by Usama Covington MD) Diabetes mellitus GERD (gastroesophageal reflux disease) HLD (hyperlipidemia) Hypertension Tinnitus of right ear Surgical History No pertinent past surgical history Family History (Updated 03/07/21 @ 14:23 by Ama Guerra) Grandmother Cancer Father Stroke Mother Hypertension Heart disease Other No family history of bleeding disorder Denies family history of Hearing loss Asthma Social History (Updated 03/07/21 @ 14:21 by Ama Guerra) Smoking Status: Never smoker Tobacco Type: Cigars Hx Alcohol Use: Yes Alcohol type: beer Hx Substance Use: No Preferred Language: Burmese Communication Ability: Effective Tassel Snipper Required: No Beliefs That Will Affect Care: None marital status: Current Living Situation: Spouse current occupational status: employed 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 Vascular: 2+ radial Abdomen: Soft, nontender Extremities: Well perfused, no peripheral edema Neuro: Nonfocal Psych: Alert orient x3, normal affect and mood Results & Data ([facility]) Vital Signs (Past 12 Hours) Vital Signs Temp Pulse Resp BP Pulse Ox 08/20/21 22:45 88 20 163/114 H 97 08/20/21 22:41 88 16 168/102 H 08/20/21 22:34 100 H 20 181/111 H 08/20/21 22:30 106 H 20 184/125 H 93 08/20/21 22:27 104 H 16 194/137 H 92 08/20/21 22:16 98.2 F 94 H 16 198/121 H 95 PG Care Time/CCT Total # of Minutes Spent Total Time Spent with Patient: Total time spent is greater than 50% in coordination of care (as documented) at patient's floor/unit and/or counseling patient: Coding Level of Care Code 95105 Inpt Consult Level 5 Diagnoses STEMI (ST elevation myocardial infarction) I21.3
[2021-08-20 23:13] LABS: Troponin I High Sensitivity 1735.8 pg/ml (0-20)
[2021-08-20] MEDS ORDERED: HEPARIN SODIUM/DEXTROSE 25,000 UNITS/500 ML BAG IV SCH (23:15)
[2021-08-20 23:19] LABS: Hypochromasia Present
[2021-08-20] MEDS ORDERED: FUROSEMIDE 40 MG/4 ML VIAL IV ONE (23:46)
[2021-08-20] MEDS ORDERED: ICU PROTOCOL FOR HYPERGLYCEMIA PRN (23:49)
--- NOTE | 2021-08-21 00:02 | Post Anesthesia Assessment ---
Date of Service August 21, 2021 Post Sedation Assessment Vital Signs Temp Pulse Resp BP Pulse Ox 08/20/21 22:45 88 20 163/114 H 97 08/20/21 22:41 88 16 168/102 H 08/20/21 22:34 100 H 20 181/111 H 08/20/21 22:30 106 H 20 184/125 H 93 08/20/21 22:27 104 H 16 194/137 H 92 08/20/21 22:16 98.2 F 94 H 16 198/121 H 95 Recovery Score Activity: Moves 4 extremities Respiration: Deep Breath/Cough Circulation: +/-20% PreAnes Value Consciousness: Fully Awake Oxygen Saturation: O2 needed for >90% Discharge Sedation Level of Care: Fast Track Phase II Post Sedation Plan On clinical assessment, the patient appears to have tolerated the sedation without complications. Patient is recovering as anticipated. Patient will continue to be monitored by nursing and may be discharged when sed ation discharge criteria are met per below protocol. Upon Completions of procedure up to 15 minutes continue every 5 minute vital signs and the P.A.R. score; then discharge to a Phase I or Fast Track to Phase II per the following guidelines: * Discharge Patient to appropriate Phase II area if PAR is 8 or greater or return to pre- procedure baseline. The post - procedure orders will be as directed. * If PAR score is less than 8 or not return to pre-procedure baseline then patient will follow Phase I monitoring till PAR is reached for Phase II. The Phase I may be done in procedure room or may call to secure a Phase I area. * If naloxone or flumazenil are used for reversal, hold in Phase I for continued monitoring from when last reversal dose was given for a minimum of 60 minutes or longer pending the nurse and/or physician discretion of patient condition before discharge to Phase II. Please call the Sedation Physician to re-evaluate and complete post-note for discharge to Phase II area. Do NOT discharge from procedure sedation or Phase 1 until post- sedation evaluation note is complete by procedure /sedation MD Sedation Discharge Instructions to be given to the patient at discharge to home.
--- NOTE | 2021-08-21 00:17 | Cardiac Catheterization ---
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: Finisher Denture Cardiac Status Clinical evaluation leading to the procedure CAD Presenation: STEMI Diagnostic Physicians Name: Koko Covington MD Closure Device Recommendations: PCI without planned CABG Cardiac Cath Procedure Full Procedure Date August 21, 2021 Pre-Procedure Diagnosis Pre-Procedure Diagnosis: STEMI AUC Score AUC Score: 9 Post-Procedure Diagnosis Post-Procedure Diagnosis: Severe CAD, Successful PCI and Elevated Intracardiac Pressures Procedure(s) Performed Procedure(s) Performed: Coronary Angiography, Left Heart Cath and Drug Eluting Stent Heavy Forger Koko Covington MD Canvas Baster(s) Income Auditor Estimated Blood Loss Estimated Blood Loss: 15 Medication(s) Medication(s): Fentanyl, Heparin, Lidocaine 1%, Nicardipine, Nitroglycerin and Versed Medication(s): Ticagrelor Summary of Findings Indication: STEMI/Heart Alert Access: 6 Fr right radial artery Catheters: EBU 3.5 guide, diagnostic JR4 Findings: LM -normal caliber, no significant disease LAD -100% acute ostial occlusion. After flow reestablished 50 to 60% mid stenosis after D1. Remainder of vessel without significant disease. Medium D1 without disease. Circumflex -large caliber, 20 to 30% mid segment disease at takeoff of medium OM1, large OM 2. 20% distal stenosis. OM1, OM 2, left PLB without disease. RCA -medium caliber, dominant, 20% proximal to mid disease. PDA without significant disease. LVEDP -39 -- PCI -- Antithrombotic therapy: Heparin, ticagrelor Procedure: Left main cannulated with EBU 3.5 guide BMW wire passed across lesion into distal vessel Ostial/proximal lesion predilated with 2.5 compliant balloon Dilated lesion stented with 3.5 x 18 mm Reed drug-eluting stent Stent post-dilated with 4.0 noncompliant balloon IC vasodilators administered for spasm Residual 50 to 60% mid LAD stenosis after D1 Mid LAD lesion stented with 2.75 x 15 mm [place]gate drug-eluting stent Stent postdilated with stent balloon Post procedure ABY 3 flow, stents well expanded with minimal residual stenosis and no apparent cardiac complications. Arterial Closure: TR band Summary: 1. Anterior STEMI/100% acute ostial LAD occlusion 2. Mild non-culprit vessel coronary artery disease -20 to 30% mid circumflex 20% proximal to mid RCA 3. Elevated intracardiac filling pressure (LVEDP 39). 4. Successful PCI of ostial LAD and mid LAD with 2 nonoverlapping drug-eluting stents (3.5 x 18 mm Reed, 2.75 x 15 mm [place]). Recommendations: Admit to ICU for continued monitoring Loaded with ticagrelor 180 mg Given IV Lasix 40 mg x 1 for elevated LVEDP/mild hypoxia Continue dual-antiplatelet therapy for at least 1 year. Trend troponins until peak, Check Echo Uptitrate beta-nadeem/LEISA as BP allows High-dose statin Consult cardiac Rehab Hemodynamics Rest Ao:: 173/111/133 Final Ao: 149/92/88 LV: 150/39 Recommendations Recommendations: PCI without planned CABG Specimens Specimens: None Radiation Exposure (mGy) 2794 Contrast (mls) 160 Anesthesia Moderate 0170-1979 Procedural Complication(s) None Disposition ICU I attest to the content of the Intraoperative Record and any orders documented therein. Any exceptions are noted below. [facility] Card Cath Procedure Codes Cardiac Catheterization Procedure 1: Cardiovascular Cath Procedures: 88932 Coronaries and LHC (+/-LV) Moderate Sedation Procedure 1: Sedation/Anesthesia: 37830 Mod Sedation by the same physician;Init15 Min Child Age 5 & Up Procedure 2: Sedation/Anesthesia: 69565 Mod Sedation by the same physician; Ea [id number] Minutes Stenting Procedure 1: Cardiovascular Stent Procedures: 36826 Perc transluminal revascularization of acute sub/total occl, aMI PG Care Time/CCT Total # of Minutes Spent Total Time Spent with Patient: Total time spent is greater than 50% in coordination of care (as documented) at patient's floor/unit and/or counseling patient:
--- NOTE | 2021-08-21 00:43 | Critical Care Consultation ---
Date of Consultation August 21, 2021 Assessment & Plan (1) STEMI (ST elevation myocardial infarction): - EKG sinus rhythm with anterior ST elevation -Received IV heparin, aspirin, IV Brilinta -Status post PCI with ABDIEL x2 to the LAD -Initial troponin 1735, trend for peak -Continue ASA, Brilinta, statin, MTP, losartan -Received 40 IV Lasix in Template Cutter, monitor need for further diuresis -Follow-up echo -Monitor in ICU (2) Hypertension: Continue MTP, losartan (3) GERD (gastroesophageal reflux disease): Continue PPI (4) Diabetes mellitus: Hold metformin following contrast in favor of sliding scale -ICU hyperglycemic protocol History of Present Illness Attending Physician: Ke Mathias MD History of Present Illness Patient is a 61-year-old male with past medical history of HTN, GERD, DM type II who presents to the emergency department with chest pain. Patient states that chest pain started yesterday evening and he was experiencing radiation to the left arm last night. Patient states that chest pain improved but he was having shortness of breath with minimal exertion throughout the day. This evening he started to develop increased chest pain with again radiation to the left arm and his brought him to the hospital. He was found to be hypertensive in chest pain did not improve with 3 sublingual nitroglycerin. EKG revealed anterior ST elevation and heart alert was called. He was given aspirin, IV ticagrelor, and heparin bolus. Patient was taken for emergent cardiac catheterization where he was found to have 100% occlusion of the LAD, and underwent successful PCI with ABDIEL x2. He was noted to have elevated filling pressures and received 40 IV Lasix. Patient now presents to the ICU post cath. On arrival to the ICU he is alert and oriented appears comfortable at rest without any distress. He denies any headache, dizziness, syncope, recent illness, fevers, sore throat, cough, shortness of breath, chest pain, nausea vomiting or diarrhea, abdominal pain, swelling in hands or feet. Patient remained in ICU for further management this time. Allergies Allergy/AdvReac Type Severity Reaction Status Date / Time grass pollen Allergy Mild Sneezing Verified 08/20/21 22:27 DUST MITES Allergy Mild Sneezing Uncoded 08/20/21 22:27 Home Medications Medication Instructions Recorded Confirmed Type losartan 50 mg tablet 50 mg PO QAM 07/10/19 08/20/21 History metformin 750 mg tablet,extended 750 mg PO BID 07/10/19 08/20/21 History release 24 hr omeprazole 20 mg capsule,delayed 20 mg PO DAILYBB 07/10/19 08/20/21 History release Patient History Medical History (Updated 08/20/21 @ 23:05 by Usama Covington MD) Diabetes mellitus GERD (gastroesophageal reflux disease) HLD (hyperlipidemia) Hypertension Tinnitus of right ear Surgical History No pertinent past surgical history Family History (Updated 03/07/21 @ 14:23 by Ama Guerra) Grandmother Cancer Father Stroke Mother Hypertension Heart disease Other No family history of bleeding disorder Denies family history of Hearing loss Asthma Social History (Updated 03/07/21 @ 14:21 by Ama Guerra) Smoking Status: Never smoker Tobacco Type: Cigars Hx Alcohol Use: Yes Alcohol type: beer Hx Substance Use: No Preferred Language: Syriac Communication Ability: Effective Rda Required: No Beliefs That Will Affect Care: None marital status: Current Living Situation: Spouse current occupational status: employed 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 Feels Safe at Home: Yes Assistive Devices: None Review of Systems Review of Systems: All systems reviewed & are unremarkable except as noted in HPI & below Physical Exam Constitutional: WD/WN, vitals as above cooperative and comfortable Eyes: PERRL, conjunctivae normal, anicteric sclerae ENMT: external ear and nose normal, oropharynx normal Neck: trachea midline, no thyromegaly Respiratory: normal respiratory effort, lungs clear to auscultation Cardiovascular: RRR, no murmur, no edema Heart Sounds: normal S1 and normal S2 Vessels: no JVD Extremities: normal capillary refill; no edema Gastrointestinal (Abdomen): normal bowel sounds, soft, nontender, no hepatosplenomegaly Musculoskeletal: no cyanosis or clubbing, extremities motor strength 5/5 Skin: no rashes, warm and dry Neurologic: PERRL, EOMI, accommodation nl, no face palsy, no dysarthria Psychiatric: A+Ox3, euthymic affect Results & Data Results & Data ([facility]) Vital Signs (Past 12 Hours) Vital Signs Temp Pulse Resp BP Pulse Ox 08/20/21 22:45 88 20 163/114 H 97 08/20/21 22:41 88 16 168/102 H 08/20/21 22:34 100 H 20 181/111 H 08/20/21 22:30 106 H 20 184/125 H 93 08/20/21 22:27 104 H 16 194/137 H 92 08/20/21 22:16 36.8 C 94 H 16 198/121 H 95 Coding Level of Care Code 67498 Inpt Consult Level 4 Diagnoses STEMI (ST elevation myocardial infarction) I21.3 Hypertension I10 GERD (gastroesophageal reflux disease) K21.9 Diabetes mellitus E11.9
--- NOTE | 2021-08-21 01:14 | Emergency Department Note ---
History of Present Illness General Chief complaint: Chest Pain Stated complaint: CHEST PAIN, HURTS TO BREATH, PAIN RADIATES 2 ARM Time Seen by Provider: 08/20/21 22:17 History of Present Illness Maximum Pain Intensity: 5 This 61-year-old presents to the ER complaining of chest pain that goes down his left arm Location: Chest Quality: Discomfort Severity: Moderate Duration: Past few hours Timing: Started few hours ago Context: Symptoms got worse and patient came in Modifying factors: better with rest; worse with activity Patient states he has had interval chest pain for the past few days but today has been constant with exertion. No prior heart disease. He does not smoke. He had a few beers today. Patient denies fever, chills, abdominal pain, pain that radiates to his back. He has diabetes and high blood pressure. No cholesterol. Home Medications Medication Instructions Recorded Confirmed Type losartan 50 mg tablet 50 mg PO QAM 07/10/19 08/20/21 History metformin 750 mg tablet,extended 750 mg PO BID 07/10/19 08/20/21 History release 24 hr omeprazole 20 mg capsule,delayed 20 mg PO DAILYBB 07/10/19 08/20/21 History release Allergies Allergy/AdvReac Type Severity Reaction Status Date / Time grass pollen Allergy Mild Sneezing Verified 08/20/21 22:27 DUST MITES Allergy Mild Sneezing Uncoded 08/20/21 22:27 Past Med/Surg History Medical History Diabetes mellitus GERD (gastroesophageal reflux disease) HLD (hyperlipidemia) Hypertension Tinnitus of right ear Surgical History No pertinent past surgical history Family History Grandmother Cancer Father Stroke Mother Hypertension Heart disease Other No family history of bleeding disorder Denies family history of Hearing loss Asthma Social History Smoking Status: Light tobacco smoker Tobacco Type: Cigars Second Hand Exposure: No; Do You Dip or Chew Tobacco: No; Tobacco Cessation Education Requested by Patient: No Hx Alcohol Use: Yes Alcohol type: beer, wine and hard liquor Hx Substance Use: No Preferred Language: Zimbabwean Communication Ability: Effective Esl Teacher Required: No Beliefs That Will Affect Care: None marital status: Current Living Situation: Spouse current occupational status: employed 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 Other Information That Helps Us Care for You: No Feels Safe at Home: Yes Safety Concerns: Feels Safe At This Time Assistive Devices: Glasses Review of Systems A total of 10 systems reviewed and were otherwise negative Physical Exam Vital Signs Vital Signs - 24 hr 08/20/21 22:16 08/20/21 22:27 08/20/21 22:30 Temperature 36.8 C Temperature Source Temporal Artery Scan Pulse Rate 94 H 104 H 106 H Pulse Rate from SpO2 Sensor Respiratory Rate 16 16 20 Respiratory Effort / Characteristics Non-Labored Spontaneous Respiratory Depth Normal Blood Pressure 198/121 H 194/137 H 184/125 H Blood Pressure Mean 146 156 144 Blood Pressure Position Lying Pulse Oximetry 95 92 93 Oxygen Delivery Method Room Air Room Air Room Air Sepsis Recent Fever Within 48 Hours No Sepsis New/Unexplained Change in Mental Status N/A Sepsis Action Taken by Nursing No Action Required 08/20/21 22:34 08/20/21 22:41 08/20/21 22:45 Temperature Temperature Source Pulse Rate 100 H 88 88 Pulse Rate from SpO2 Sensor 81 Respiratory Rate 20 16 20 Respiratory Effort / Characteristics Respiratory Depth Blood Pressure 181/111 H 168/102 H 163/114 H Blood Pressure Mean 134 124 130 Blood Pressure Position Pulse Oximetry 97 Oxygen Delivery Method Sepsis Recent Fever Within 48 Hours Sepsis New/Unexplained Change in Mental Status Sepsis Action Taken by Nursing VITALS: Vitals are noted on the nurse's note and reviewed by myself. Vital signs hypertensive. GENERAL: Pleasant male, in no acute distress, nondiaphoretic, well-developed well-nourished. SKIN: The skin was without rashes, erythema, edema, or bruising. There is no tenting of the skin. Capillary reflex less than 2 seconds. HEAD: Normocephalic atraumatic. EARS: External auditory canals clear, EYES: Pupils equal round and reactive to light and accommodation. Conjunctivae without injection, sclerae without icterus. Extraocular movements intact. NOSE: Patent, turbinates without inflammation or discharge. MOUTH: Mucous membranes moist. Pharynx without erythema or exudate. Uvula midline. Airway patent. Tongue does not deviate. NECK: Supple without nuchal rigidity. No lymphadenopathy. No thyromegaly. Cervical spine is nontender. No JVD. HEART: Regular rate and rhythm LUNGS: Clear to auscultation bilaterally without wheezes, rales or rhonchi. No retractions or accessory muscle use. ABDOMEN: Positive bowel sounds x 4. Normal tympanic percussion. Soft, nontender, without masses or organomegaly. Alvarez sign negative. No guarding or rebound tenderness. No CVA tenderness MUSCULOSKELETAL: No muscle atrophy, erythema, or edema noted. NEURO: Patient was alert and oriented to person place and time. Normal sensation to light and sharp touch. No focal neurological deficits. Course Administered Medications Discontinued Medications Aspirin (Aspirin Chew 324 Mg) Confirm Administered Dose 324 mg .ROUTE .STK-MED ONE Stop: 08/20/21 22:24 Last Admin: 08/20/21 22:33 Dose: 324 mg Documented by: [id number] Aspirin (Aspirin Chew 324 Mg) 324 mg PO NOW STA Stop: 08/20/21 22:25 Last Admin: 08/20/21 22:38 Dose: Not Given Documented by: [id number] Ticagrelor (Ticagrelor 90 Mg Tab) 180 mg PO ONE ONE Stop: 08/20/21 22:51 Last Admin: 08/20/21 22:55 Dose: 180 mg Documented by: [id number] Critical Care Time Critical Care Time: Yes Total Critical Care Time: 35 I have personally spent 35 minutes of critical care time in the direct management of this patient. This includes bedside care, interpretation of diagnostic studies, and testing, discussion with consultants, patient, and family members, and other required patient management activities. This 35 minutes is in excess of all separately billable procedures. Medical Decision Making Medical Records Attestation: I reviewed the patient's medical records. Home Medications Current Medication List: was personally reviewed by me Laboratory Data Attestation: I reviewed the patient's lab results. Result diagrams: 08/20/21 22:31 08/20/21 22:31 Lab Results 08/20/21 08/20/21 08/20/21 Range/Units 22:31 22:31 22:31 WBC 8.96 (4.8-10.8) K/uL RBC 5.15 (4.7-6.1) M/uL Hgb 11.7 L (14.0-18.0) g/dL Hct 37.2 L (42-52) % MCV 72.2 L (80-100) fL MCH 22.7 L (25-34) pg MCHC 31.5 L (32-36) g/dL RDW Std Deviation 39.9 (36.4-46.3) fL RDW Coeff of Yamil 15.0 H (11.5-14.5) % Plt Count 305 (130-400) K/uL MPV 10.3 (7.4-10.4) fL Immature Gran % (Auto) 0.1 % Neut % (Auto) 59.5 % Lymph % (Auto) 29.7 % Rice % (Auto) 9.4 % Eos % (Auto) 1.1 % Baso % (Auto) 0.2 % Neut # (Auto) 5.33 (1.4-6.5) K/uL Lymph # (Auto) 2.66 (1.2-3.4) K/uL Rice # (Auto) 0.84 H (0.11-0.59) K/uL Eos # (Auto) 0.10 (0-0.5) K/uL Baso # (Auto) 0.02 (0-0.2) K/uL Immature Gran # (Auto) 0.01 (0.00-0.02) K/uL Hypochromasia Present PT 10.6 (9.0-12.0) Seconds INR 1.0 (0.9-1.1) APTT 25.6 (21.0-31.0) Seconds PTT Ratio 0.9 Sodium 138 (136-145) mmol/L Potassium 3.8 (3.5-5.1) mmol/L Chloride 103 (98-107) mmol/L Carbon Dioxide 24 (21-32) mmol/L Anion Gap 11 (3-11) BUN 11 (6-23) mg/dl Creatinine 1.11 (0.6-1.4) mg/dl Est Cr Clr Drug Dosing 88.9 ml/min Est GFR ( Amer) 82.0 ml/min Est GFR (Non-Af Amer) 70.8 ml/min BUN/Creatinine Ratio 9.9 L (10-20) Glucose 153 H (70-99(Fasting)) mg/dl Calcium 9.2 (8.5-10.1) mg/dl Magnesium 1.7 (1.7-2.4) mg/dl Total Bilirubin 0.3 (0.2-1.0) mg/dl AST 37 (13-39) U/L ALT 29 (7-52) U/L Alkaline Phosphatase 90 (34-104) U/L Total Creatine Kinase 275 H (30-223) U/L Troponin I High Sens 1735.8 H* (0-20) pg/ml B-Natriuretic Peptide (0-100) pg/ml Total Protein 7.9 (6.0-8.3) gm/dl Albumin 4.4 (3.4-5.0) gm/dl Globulin 3.5 (2.5-4.0) gm/dl Albumin/Globulin Ratio 1.3 (0.9-2) Lipase 20 (11-82) U/L TSH (0.300-4.500) uIu/ml SARS-CoV-2, RNA, NAAT (NEGATIVE) 08/20/21 08/20/21 08/20/21 Range/Units 22:31 22:31 22:33 WBC (4.8-10.8) K/uL RBC (4.7-6.1) M/uL Hgb (14.0-18.0) g/dL Hct (42-52) % MCV (80-100) fL MCH (25-34) pg MCHC (32-36) g/dL RDW Std Deviation (36.4-46.3) fL RDW Coeff of Yamil (11.5-14.5) % Plt Count (130-400) K/uL MPV (7.4-10.4) fL Immature Gran % (Auto) % Neut % (Auto) % Lymph % (Auto) % Rice % (Auto) % Eos % (Auto) % Baso % (Auto) % Neut # (Auto) (1.4-6.5) K/uL Lymph # (Auto) (1.2-3.4) K/uL Rice # (Auto) (0.11-0.59) K/uL Eos # (Auto) (0-0.5) K/uL Baso # (Auto) (0-0.2) K/uL Immature Gran # (Auto) (0.00-0.02) K/uL Hypochromasia PT (9.0-12.0) Seconds INR (0.9-1.1) APTT (21.0-31.0) Seconds PTT Ratio Sodium (136-145) mmol/L Potassium (3.5-5.1) mmol/L Chloride (98-107) mmol/L Carbon Dioxide (21-32) mmol/L Anion Gap (3-11) BUN (6-23) mg/dl Creatinine (0.6-1.4) mg/dl Est Cr Clr Drug Dosing ml/min Est GFR ( Amer) ml/min Est GFR (Non-Af Amer) ml/min BUN/Creatinine Ratio (10-20) Glucose (70-99(Fasting)) mg/dl Calcium (8.5-10.1) mg/dl Magnesium (1.7-2.4) mg/dl Total Bilirubin (0.2-1.0) mg/dl AST (13-39) U/L ALT (7-52) U/L Alkaline Phosphatase (34-104) U/L Total Creatine Kinase (30-223) U/L Troponin I High Sens (0-20) pg/ml B-Natriuretic Peptide 425 H (0-100) pg/ml Total Protein (6.0-8.3) gm/dl Albumin (3.4-5.0) gm/dl Globulin (2.5-4.0) gm/dl Albumin/Globulin Ratio (0.9-2) Lipase (11-82) U/L TSH 2.653 (0.300-4.500) uIu/ml SARS-CoV-2, RNA, NAAT NEGATIVE (NEGATIVE) Imaging Data Attestation: I personally reviewed and interpreted this imaging study as follows: MDM Narrative Prior records/ancillary studies reviewed. Triage Nursing notes reviewed. Additional history obtained from family. The patient's history was concerning for chest pain. Differential diagnosis: Etiologies such as cardiac ischemia, aortic dissection, pulmonary embolism, pneumonia, pneumothorax, musculoskeletal, infections, pericarditis, myocarditis, esophageal rupture, gastrointestinal, as well as others were entertained. Physical examination: As above. ER treatment provided: An order was placed for continuous cardiac monitoring. The monitor shows a rate of 60-1 50 with a sinus rhythm. Aspirin, nitroglycerin On reassessment the patient felt better. Diagnostic interpretation by me: The electrocardiogram was ordered for chest pain EKG: Normal sinus, ST elevation in the anteroseptal leads, rate of 94. Impression acute CO interpreted by myself I think arrhythmia is unlikely. EKG shows no interval abnormalities such as QT prolongation or WPW. There are no findings to suggest Brugada syndrome. Cardiac monitoring in the emergency department reveals no tachycardic or bradycardic dysrhythmia. Hypertrophic cardiomyopathy was considered but there are no clear historical elements pointing toward this. EKG is not suggestive. The QRS voltage is not extremely large The labs revealed elevated troponin and BNP Imaging studies: Chest x-ray with mild pulmonary congestion. No free air per my interpretation HEART SCORE: Hx: high/mod/low suspicion: 2 ECG: ST depression/nonspecific changes/normal: 2 Age: Greater than 65/45-64/less than 45: 1 Risk factors: (Hypertension, hyperlipidemia, diabetes, coronary disease, tobacco use, cocaine use): 2 Troponin: Greater than 2 times normal limits/1-2 times normal limits/normal: 2 Total: 9 Consultation: A consultation was placed with Dr. Covington and a heart alert was immediately initiated upon initial evaluation. The case was discussed and diagnostics were reviewed. The patient was evaluated in the ER for further treatment. Exam and history seem consistent with STEMI. Heart alert was immediately initiated when I first evaluated the patient. Cardiology came in and took the patient to the Heavy Equipment Mechanic. He was given aspirin nitroglycerin Brilinta and heparin. All questions were answered. Patient and family verbalized understanding. He was admitted to cardiology and taken emergently to the Heavy Equipment Mechanic. By the evaluation outlined above emergent etiologies such as aortic dissection, pulmonary embolism, pneumonia, pneumothorax, infections, pericarditis, myocarditis, gastrointestinal, as well as others were deemed relatively unlikely. The pt informed about the findings as listed above. All questions were answered and pleased with the treatment. The chart was completed utilizing [employer] Speech voice recognition software. Grammatical errors, random word insertions, pronoun errors, and incomplete sentences are an occassional consequence of this system due to software limitations, ambient noise, and hardware issues. Any formal questions or concerns about the content, text, or information contained within the body of this dictation should be directly addressed to the physician assistant professor of chemistry for clarification. Impression & Plan STEMI (ST elevation myocardial infarction) Discharge Plan Visit Data Chief Complaint: Chest Pain Stated Complaint: CHEST PAIN, HURTS TO BREATH, PAIN RADIATES 2 ARM ED Provider: Leif,Joey ED Midlevel Provider: Jaqui Hill Discharge Problem: STEMI (ST elevation myocardial infarction) Patient Disposition: Admitted As Inpatient Condition: Fair Discharge Instructions Interventions: ED Discharge Assessment Last Done: 08/20/21 22:59
--- NOTE | 2021-08-21 01:14 | History & Physical Report ---
Date of Service August 21, 2021 Assessment & Plan (1) STEMI (ST elevation myocardial infarction): Plan: 61 y/o M Hx GERD, HTN, DM II. Presents with intermittent CP radiating to his L arm and accompanied by SOB x 1 day. On arrival to the ER ST elevation were noted on EKG. Initial trop was 1735. He was promptly transported to the chemical laboratory scientist and received 2 ABDIEL to his LAD. High LVEDP was noted toward during the procedure and he received a dose of Lasix as well. The pt is resting comfortably following the procedure. He denies CP or SOB. Additional labs are notable for mild microcytic anemia. 1) STEMI - provided with Brilinta, Heparin, metoprolol, high-intensity statin. Cardiology following. 2) Anemia - microcytic - as he is taking Heparin and Brilinta, we will trend Hb and guaiac stool. Iron studies AM. 3) HTN - hypertensive post procedure - restart losartan, cont metoprolol 4) DM II - sliding scale / ICU protocol 5) GERD - cont PPi Full code - full dose Heparin Total time for this admit including review of labs, meds, imaging, records - discussion with pt and cardiology attending - 39 min Admission and Anticipated Discharge Date Admission Date: August 20, 2021 History of Present Illness Chief Complaint: Chest Pain, SOB Primary Care Provider: Jerel Medina MD 61 y/o M Hx GERD, HTN, DM II. Presents with intermittent CP radiating to his L arm and accompanied by SOB x 1 day. On arrival to the ER ST elevation were noted on EKG. Initial trop was 1735. He was promptly transported to the chemical laboratory scientist and received 2 ABDIEL to his LAD. High LVEDP was noted toward during the procedure and he received a dose of Lasix as well. The pt is resting comfortably following the procedure. He denies CP or SOB. Additional labs are notable for mild microcytic anemia. PMH: 1) HTN 2) DM II 3) GERD 4) Obese 5) CAD - STEMI - ostial and mid LAD stents Surgical: Denies prior surgery Social: Rare cigar, social ETOH. Family: father CVA Allergies Allergy/AdvReac Type Severity Reaction Status Date / Time grass pollen Allergy Mild Sneezing Verified 08/20/21 22:27 DUST MITES Allergy Mild Sneezing Uncoded 08/20/21 22:27 Home Medications Medication Instructions Recorded Confirmed Type losartan 50 mg tablet 50 mg PO QAM 07/10/19 08/20/21 History metformin 750 mg tablet,extended 750 mg PO BID 07/10/19 08/20/21 History release 24 hr omeprazole 20 mg capsule,delayed 20 mg PO DAILYBB 07/10/19 08/20/21 History release Past Med/Surg History Medical History (Updated 08/21/21 @ 01:13 by Jaqui Hill PA-C) Diabetes mellitus GERD (gastroesophageal reflux disease) HLD (hyperlipidemia) Hypertension Tinnitus of right ear Surgical History No pertinent past surgical history Family History (Updated 03/07/21 @ 14:23 by Ama Guerra) Grandmother Cancer Father Stroke Mother Hypertension Heart disease Other No family history of bleeding disorder Denies family history of Hearing loss Asthma Social History (Updated 03/07/21 @ 14:21 by Ama Guerra) Smoking Status: Light tobacco smoker Tobacco Type: Cigars Second Hand Exposure: No; Do You Dip or Chew Tobacco: No; Tobacco Cessation Education Requested by Patient: No Hx Alcohol Use: Yes Alcohol type: beer, wine and hard liquor Hx Substance Use: No Preferred Language: Libyan Communication Ability: Effective Acquisition Analyst Required: No Beliefs That Will Affect Care: None marital status: Current Living Situation: Spouse current occupational status: employed 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 Other Information That Helps Us Care for You: No Feels Safe at Home: Yes Safety Concerns: Feels Safe At This Time Assistive Devices: Glasses Review of Systems Review of Systems: Gen: Denies fevers, night sweats, rigors, fatigue, malaise, weight loss/gain ENT: Denies congestion, throat pain, hearing loss Eyes: Denies acute visual changes CV: CP radiating to L arm + SOB Pulmonary: Progressive SOB x 1 day GI: Denies N/V, diarrhea, constipation Neuro: Denies acute or unilateral weakness, acute gait impairment, headache or acute visual changes Musculoskeletal: Denies joint pain, inflammation Endocrine: Denies polydipsia, polyuria Skin: Denies acute rashes or ulcers Physical Exam Physical Exam: General: AAO x 3, no distress ENT: No erythema or exudates, no thrush Eyes: LENNOX, EOMI Head and neck: Normocephalic, atraumatic, No JVD, neck is supple. Chest/heart: Nontender, S1,2, RRR, no murmurs, no gallops Lungs: CTAB, no wheezing or crackles Abdomen: Nontender, nondistended, BS+ Neuro: AAO x 3, speech is clear, no unilateral weakness or loss of sensation, coordination intact Musculoskeletal: No joint inflammation, muscle tenderness, FROM Skin: No acute rashes or ulcers - bruising of R arm at insertion of cath without significant hematoma Extremities: No clubbing, cyanosis, edema Results & Data Results & Data ([facility]) Vital Signs (Past 12 Hours) Vital Signs Temp Pulse Pulse Resp BP BP Pulse Ox 08/21/21 01:00 103 H 28 H 97 08/21/21 00:45 92 H 20 147/95 H 96 08/21/21 00:30 99.0 F 101 H 25 H 113/86 95 08/21/21 00:17 99.0 F 95 H 18 148/86 H 95 08/20/21 22:45 88 20 163/114 H 97 08/20/21 22:41 88 16 168/102 H 08/20/21 22:34 100 H 20 181/111 H 08/20/21 22:30 106 H 20 184/125 H 93 08/20/21 22:27 104 H 16 194/137 H 92 08/20/21 22:16 98.2 F 94 H 16 198/121 H 95 Code Status & VTE Plan VTE Prophylaxis Plan VTE Prophylaxis will be ordered: Yes PG Care Time/CCT Total # of Minutes Spent Total Time Spent with Patient: Total time spent is greater than 50% in coordination of care (as documented) at patient's floor/unit and/or counseling patient: Coding Level of Care Code 00597 Initial Inpt Care Lvl 3 Diagnoses STEMI (ST elevation myocardial infarction) I21.3 Involved coronary artery: unspecified coronary artery (1) STEMI (ST elevation myocardial infarction) Involved coronary artery: unspecified coronary artery Qualified Code(s): I21.3 - ST elevation (STEMI) myocardial infarction of unspecified site
[2021-08-21] MEDS ORDERED: GLUCOSE 10 TABS/TUBE PO PRN (03:07)
[2021-08-21] MEDS ORDERED: GLUCAGON FOR INJ 1 MG VIAL SQ PRN (03:07)
[2021-08-21] MEDS ORDERED: DEXTROSE 50% 50 ML SYRINGE IV PRN (03:07)
[2021-08-21] MEDS ORDERED: GLUCOSE 40% GEL 15 GM TUBE PO PRN (03:07)
[2021-08-21] MEDS ORDERED: CARBOHYDRATES FOR HYPOGLYCEMIA PO PRN (03:07)
[2021-08-21] MEDS ORDERED: METOPROLOL TARTRATE 1 MG/ML VIAL IV STA (03:38)
[2021-08-21] MEDS ORDERED: METOPROLOL TARTRATE 1 MG/ML VIAL IV ONE (03:43)
[2021-08-21 05:31] LABS: Basophils # (auto) 0.02 K/uL (0-0.2); Basophils % (auto) 0.2 %; Eosinophils # (auto) 0.02 K/uL (0-0.5); Eosinophils % (auto) 0.2 %; Hematocrit (blood only) 37.2 % (42-52); Immature Granulocytes # (auto) 0.03 K/uL (0.00-0.02); Immature Granulocytes % (auto) 0.3 %; Lymphocytes # (auto) 1.58 K/uL (1.2-3.4); Lymphocytes % (auto) 17.2 %; Mean Corpuscular Hemoglobin 23.2 pg (25-34); Mean Corpuscular Hgb Conc 32.3 g/dL (32-36); Mean Corpuscular Volume 71.8 fL (80-100); Mean Platelet Volume 10.7 fL (7.4-10.4); Monocytes # (auto) 0.73 K/uL (0.11-0.59); Monocytes % (auto) 7.9 %; Neutrophils # (auto) 6.81 K/uL (1.4-6.5); Neutrophils % (auto) 74.2 %; Platelet Count 251 K/uL (130-400); RDW Coefficient of Variation 14.8 % (11.5-14.5); RDW Standard Deviation 39.4 fL (36.4-46.3); Red Blood Count 5.18 M/uL (4.7-6.1); White Blood Count 9.19 K/uL (4.8-10.8)
[2021-08-21 05:56] LABS: Hypochromasia Present
[2021-08-21] MEDS ORDERED: LABETALOL HCL IV 5 MG/ML 20ML IV STA (06:10)
[2021-08-21 06:20] LABS: BUN Creatinine Ratio 12.5 (10-20); Calcium 9.6 mg/dl (8.5-10.1); Chol HDL Ratio 5.2 (0-5); Creatinine Clr Calc Pharmacy 102.5 ml/min; Est GFR (African American) 97.8 ml/min; Est GFR (Non-African American) 84.4 ml/min; Potassium 3.6 mmol/L (3.5-5.1)
[2021-08-21] MEDS ORDERED: POTASSIUM CHLORIDE CRTAB 20 MEQ TABCR PO STA (06:41)
[2021-08-21 06:42] LABS: Estimated Average Glucose 154 mg/dl
--- NOTE | 2021-08-21 07:36 | Communication Note ---
Date of Service: August 21, 2021 Patient seen and examined. EMR reviewed. Discussed with critical care GABY. The patient is doing well this morning. He sitting up eating breakfast. His c atheterization site is without pain or swelling. He is having some pain in his left arm. No other chest pain nausea or vomiting. He is intermittently hypertensive. Otherwise he is doing well. Plan on repeat echocardiogram this morning. Continued adjustment of beta- nadeem and LEISA inhibitor as tolerated. Will need continued follow-up with primary care for management of diabetes. Can likely downgrade out of ICU status. Ultimate disposition per cardiology. Critical care will sign off at this point time. Feel free to contact us with questions or concerns Coding Level of Care Code None
[2021-08-21] MEDS: INSULIN ASPART PER UNIT SC SCH ×4 (08:05→20:48)
[2021-08-21] MEDS: ASPIRIN 81 MG ECTAB PO SCH (08:07)
[2021-08-21] MEDS: ATORVASTATIN 40 MG TAB PO SCH (08:08)
[2021-08-21] MEDS: LOSARTAN POTASSIUM 25 MG TAB PO SCH (08:09)
[2021-08-21] MEDS: PANTOprazole 40 MG TAB PO SCH (08:09)
[2021-08-21] MEDS: TICAGRELOR 90 MG TAB PO SCH ×2 (08:11→20:50)
--- NOTE | 2021-08-21 08:51 | XRay Report ---
XR chest 1V portable CLINICAL HISTORY: Chest pain TECHNIQUE: Single frontal radiograph of the chest was obtained. Comparison: Comparison is made to chest radiograph 09/01/2020 FINDINGS: No lines and tubes are seen. The cardiomediastinal silhouette is normal. There is prominence and ceph alization of the vasculature with Noel B lines seen. No evidence of pleural effusion or pneumothora x. IMPRESSION: Moderate pulmonary edema. ACT 112: Negative or not required by law. Electronically signed by: Kimani Palmer M.D. 08/21/2021 8:50 AM
[2021-08-21] MEDS ORDERED: METOPROLOL TARTRATE 25 MG TAB PO SCH (09:00)
[2021-08-21] MEDS ORDERED: METOPROLOL TARTRATE 25 MG TAB PO STA (09:38)
[2021-08-21 10:17] LABS: Troponin I High Sensitivity 123957.3 pg/ml (0-20)
[2021-08-21] MEDS ORDERED: LANTUS PER UNIT CHARGE SQ ONE (10:45)
--- NOTE | 2021-08-21 11:39 | Communication Note ---
Date of Service: August 21, 2021 61-year-old female who experienced chest pain yesterday. Patient was taken emergently to the cardiac catheterization lab where he was found to have 100% occlusion of the LAD. Patient was stented and placed in the intensive care unit overnight for observation. He was stable this morning and downgraded from ICU status to telemetry. I reported to room 108 after a CODE BLUE was called overhead. On arrival, patient was awake and alert. Nursing had him on the floor. Patient appeared to be diaphoretic from the door but in no acute distress. Patient experienced what appeared to be a vasovagal event. He was on the toilet attempting to have bowel movement. He stated that he had light headedness and felt a little dizzy. He appeared to be pale and diaphoretic. 2 nurses were in the room and lowered him to the floor. He had no injury. He did not hit his head. As he was all over the floor he had a large bowel movement on the floor. Patient had no loss of consciousness. Initial heart rate was in the 90s. Systolic blood pressure 123. Patient was saturating at 98%. BSG was 215 After assessing the patient, he was able to sit up on the floor with no lightheadedness dizziness nausea or vomiting. Patient was then assisted back into bed where repeat vitals were obtained and were stable. No cardiac compressions or pulmonary resuscitation was required. A twelve-lead EKG was obtained and compared to prior EKG and showed no significant ST wave changes A repeat troponin is currently pending. Once the troponin is reported, nursing staff to update Dr. Covington. Patient should remain on telemetry status. Coding Level of Care Code Critical Care macie addt'l 30 min Time Spent (min) 30
--- NOTE | 2021-08-21 16:44 | Hospitalist Progress Note ---
Date of Service August 21, 2021 Assessment & Plan (1) STEMI (ST elevation myocardial infarction): Plan: 61 y/o M Hx GERD, HTN, DM II. Presents with intermittent CP radiating to his L arm and accompanied by SOB x 1 day. On arrival to the ER ST elevation were noted on EKG. Initial trop was 1735. He was promptly transported to the label maker and received 2 ABDIEL to his LAD. High LVEDP was noted toward during the procedure and he received a dose of Lasix as well. The pt is resting comfortably following the procedure. He denies CP or SOB. Additional labs are notable for mild microcytic anemia. 1) STEMI - provided with Brilinta, Heparin, metoprolol, high-intensity statin. Cardiology following. Patient will continue to be monitored overnight. Anticipate discharge in AM. Will obtain echo. will transfer out of ICU. 2) Anemia - microcytic - as he is taking Heparin and Brilinta, we will trend Hb and guaiac stool. Iron studies AM. 3) HTN - hypertensive post procedure - restart losartan, cont metoprolol 4) DM II - sliding scale / ICU protocol 5) GERD - cont PPi Full code - full dose Heparin Admission and Anticipated Discharge Date Admission Date: August 20, 2021 Subjective 61 yo male reports feeling well. He has no complaints. Later today: patient had a vasovagal episode and passed out. A code blue was called but quickly cancelled. Review of Systems Review of Systems: All systems reviewed & are unremarkable except as noted in HPI & below Physical Exam Physical Exam: General: AAO x 3, no distress ENT: No erythema or exudates, no thrush Eyes: LENNOX, EOMI Head and neck: Normocephalic, atraumatic, No JVD, neck is supple. Chest/heart: Nontender, S1,2, RRR, no murmurs, no gallops Lungs: CTAB, no wheezing or crackles Abdomen: Nontender, nondistended, BS+ Neuro: AAO x 3, speech is clear, no unilateral weakness or loss of sensation, coordination intact Musculoskeletal: No joint inflammation, muscle tenderness, FROM Skin: No acute rashes or ulcers - bruising of R arm at insertion of cath without significant hematoma Extremities: No clubbing, cyanosis, edema Results & Data Results & Data ([facility]) Vital Signs (Past 12 Hours) Vital Signs Pulse Resp BP Pulse Ox 08/21/21 13:00 84 18 148/92 H 96 08/21/21 12:45 79 15 144/84 H 99 08/21/21 12:30 70 20 124/67 97 08/21/21 12:00 66 19 113/64 97 08/21/21 11:45 69 18 111/74 99 08/21/21 11:34 71 16 137/85 98 08/21/21 11:15 70 25 H 119/73 94 08/21/21 11:12 122/73 97 08/21/21 11:07 88 97 08/21/21 11:02 65 25 H 122/63 92 08/21/21 11:00 90 22 95 08/21/21 10:30 78 21 141/96 H 99 08/21/21 10:00 86 18 151/96 H 99 08/21/21 09:30 85 23 162/106 H 99 08/21/21 09:00 83 19 147/101 H 99 08/21/21 08:30 88 20 149/93 H 99 08/21/21 08:00 84 11 L 148/101 H 98 08/21/21 07:30 93 H 21 135/91 98 08/21/21 07:00 87 16 164/101 H 97 08/21/21 06:30 91 H 16 165/108 H 99 08/21/21 06:09 89 13 166/110 H 98 08/21/21 06:08 92 H 19 182/111 H 99 08/21/21 06:00 85 12 182/121 H 100 08/21/21 05:30 82 14 170/121 H 98 08/21/21 05:00 87 12 162/108 H 99 PG Care Time/CCT Total # of Minutes Spent Total Time Spent with Patient: Total time spent is greater than 50% in coordination of care (as documented) at patient's floor/unit and/or counseling patient: Coding Level of Care Code 79504 Subseq Hosp Care Lvl 3 Diagnoses STEMI (ST elevation myocardial infarction) I21.3 Involved coronary artery: unspecified coronary artery Time Spent (min) 35 (1) STEMI (ST elevation myocardial infarction) Involved coronary artery: unspecified coronary artery Qualified Code(s): I 21.3 - ST elevation (STEMI) myocardial infarction of unspecified site
--- NOTE | 2021-08-21 17:53 | XCELERA ---
[id number]
--- NOTE | 2021-08-21 18:05 | Cardiology Progress Note ---
Date of Service August 21, 2021 Assessment & Plan (1) CAD (coronary artery disease): Plan: Anterior STEMIpost PCI to proximal/mid LAD with 2 nonoverlapping ABDIEL No significant non-culprit disease 2. Acute heart failure/ischemic cardiomyopathyLVEDP 40 at time of PCI. EF 45% LAD distribution wall motion abnormality. 3. Hypertension 4. Dyslipidemia 5. Type 2 diabetes 6. Mild mitral regurgitation 7. Anemia 8. Vasovagal syncope Patient feeling well this afternoon. Event this morning most consistent with vasovagal syncope. No associated arrhythmia or proceeding ischemic symptoms. Chest pain-free, troponin has peaked No signs of residual heart failure on exam or echo post diuresis, negative more than 3 L No access site complications Continue DAPT with aspirin, ticagrelor Continue current metoprolol, transition to Toprol-XL on discharge Continue current losartan Continue current statin Likely add SGLT2 as an outpatient continue to monitor on telemetry but does not need to be in ICU from a cardiac standpoint. possible discharge tomorrow Admission and Anticipated Discharge Date Admission Date: August 20, 2021 Subjective At 11:04 patient had a syncopal event. Had gotten up to have a bowel movement. On toilet felt presyncopal, flushed and sweaty. Attempt to get back to his bed but collapsed to the floor. Denied any preceding chest pain, palpitations. Episode reminiscent of what he had back in June 2019. Normal blood pressure at time of event. Heart rates persistently in the 50s to 60s at time of event or for increasing into 90s. No associated arrhythmia at time of event. Patient seen this afternoon and was feeling well. Denied any additional presyncopal symptoms, chest pain. Review of Systems Review of Systems: All systems reviewed & are unremarkable except as noted in HPI & below Physical Exam Physical Exam: General: Comfortable HEENT: Sclerae anicteric Lungs: Clear to auscultation bilaterally, no crackles or wheezes Cardiac: Regular rate and rhythm, no murmurs. Vascular: Right radial artery access site with no ecchymosis, hematoma. Distal pulse and sensation intact. Abdomen: Soft, nontender Extremities: Well perfused, no peripheral edema Neuro: Nonfocal Psych: Alert orient x3, normal affect and mood Results & Data ([facility]) Vital Signs (Past 12 Hours) Vital Signs Pulse Resp BP Pulse Ox 08/21/21 17:00 83 14 99 07/05/22 16:00 93 H 21 115/78 97 08/21/21 15:00 84 27 H 129/75 08/21/21 14:45 85 20 143/81 H 98 08/21/21 14:30 81 20 152/79 H 98 08/21/21 14:15 71 12 135/94 99 08/21/21 14:00 71 21 134/96 99 08/21/21 13:45 74 15 129/83 95 08/21/21 13:30 84 22 133/85 97 08/21/21 13:15 83 17 166/96 H 95 08/21/21 13:00 84 18 148/92 H 96 08/21/21 12:45 79 15 144/84 H 99 08/21/21 12:30 70 20 124/67 97 08/21/21 12:00 66 19 113/64 97 08/21/21 11:45 69 18 111/74 99 08/21/21 11:34 71 16 137/85 98 08/21/21 11:15 70 25 H 119/73 94 08/21/21 11:12 122/73 97 08/21/21 11:07 88 97 08/21/21 11:02 65 25 H 122/63 92 08/21/21 11:00 90 22 95 08/21/21 10:30 78 21 141/96 H 99 08/21/21 10:00 86 18 151/96 H 99 08/21/21 09:30 85 23 162/106 H 99 08/21/21 09:00 83 19 147/101 H 99 08/21/21 08:30 88 20 149/93 H 99 08/21/21 08:00 84 11 L 148/101 H 98 08/21/21 07:30 93 H 21 135/91 98 08/21/21 07:00 87 16 164/101 H 97 08/21/21 06:30 91 H 16 165/108 H 99 08/21/21 06:09 89 13 166/110 H 98 08/21/21 06:08 92 H 19 182/111 H 99 08/21/21 06:00 85 12 182/121 H 100 PG Care Time/CCT Total # of Minutes Spent Total Time Spent with Patient: Total time spent is greater than 50% in coordination of care (as documented) at patient's floor/unit and/or counseling patient: Coding Level of Care Code 84815 Subseq Hosp Care Lvl 3 Diagnoses CAD (coronary artery disease) I25.10
[2021-08-21] MEDS: METOPROLOL TARTRATE 50 MG TAB PO SCH (20:51)
--- NOTE | 2021-08-22 06:13 | Electrocardiogram Report ---
Test Reason : Blood Pressure : / mmHG Vent. Rate : 094 BPM Atrial Rate : 094 BPM P-R Int : 156 ms QRS Dur : 082 ms QT Int : 352 ms P-R-T Axes : 046 047 067 degrees QTc Int : 440 ms Poor data quality, interpretation may be adversely affected Normal sinus rhythm Acute anterior infarction ACUTE IA / STEMI Abnormal ECG When compared with ECG of 01-SEP-2020 21:37, ST elevation now present in Anterior leads Confirmed by Tr Stone ([id number]) on 08/22/2021 6:13:20 AM Referred By: REFERRED SELF Confirmed By:Tr Stone
[2021-08-22 06:18] LABS: Basophils # (auto) 0.01 K/uL (0-0.2); Basophils % (auto) 0.1 %; Eosinophils # (auto) 0.07 K/uL (0-0.5); Eosinophils % (auto) 0.9 %; Hematocrit (blood only) 36.2 % (42-52); Hemoglobin 11.4 g/dL (14.0-18.0); Immature Granulocytes # (auto) 0.01 K/uL (0.00-0.02); Immature Granulocytes % (auto) 0.1 %; Lymphocytes # (auto) 2.05 K/uL (1.2-3.4); Lymphocytes % (auto) 25.1 %; Mean Corpuscular Hemoglobin 22.6 pg (25-34); Mean Corpuscular Hgb Conc 31.5 g/dL (32-36); Mean Corpuscular Volume 71.7 fL (80-100); Mean Platelet Volume 10.5 fL (7.4-10.4); Neutrophils # (auto) 5.13 K/uL (1.4-6.5); Neutrophils % (auto) 62.8 %; Platelet Count 224 K/uL (130-400); RDW Coefficient of Variation 15.1 % (11.5-14.5); RDW Standard Deviation 39.8 fL (36.4-46.3); Red Blood Count 5.05 M/uL (4.7-6.1); White Blood Count 8.17 K/uL (4.8-10.8)
--- NOTE | 2021-08-22 06:19 | Electrocardiogram Report ---
Test Reason : Blood Pressure : / mmHG Vent. Rate : 096 BPM Atrial Rate : 096 BPM P-R Int : 154 ms QRS Dur : 084 ms QT Int : 354 ms P-R-T Axes : 047 052 088 degrees QTc Int : 447 ms Sinus rhythm with occasional Premature ventricular complexes Anterior infarct ACUTE DE / STEMI Abnormal ECG When compared with ECG of 20-AUG-2021 22:23, Premature ventricular complexes are now Present Confirmed by Tr Stone ([id number]) on 08/22/2021 6:18:51 AM Referred By: REFERRED SELF Confirmed By:Tr Stone
--- NOTE | 2021-08-22 06:23 | Electrocardiogram Report ---
Test Reason : Blood Pressure : / mmHG Vent. Rate : 095 BPM Atrial Rate : 095 BPM P-R Int : 158 ms QRS Dur : 086 ms QT Int : 356 ms P-R-T Axes : 060 057 083 degrees QTc Int : 447 ms Sinus rhythm with occasional Premature ventricular complexes Anterior infarct (cited on or before 20-AUG-2021) ACUTE ME / STEMI Abnormal ECG When compared with ECG of 21-AUG-2021 00:17, Serial changes of Anteroseptal infarct Present Confirmed by Tr Stone ([id number]) on 08/22/2021 6:22:46 AM Referred By: REFERRED SELF Confirmed By:Tr Stone
[2021-08-22 06:41] LABS: BUN Creatinine Ratio 13.5 (10-20); Calcium 8.8 mg/dl (8.5-10.1); Creatinine Clr Calc Pharmacy 99.3 ml/min; Est GFR (African American) 97.8 ml/min; Est GFR (Non-African American) 84.4 ml/min; Potassium 3.7 mmol/L (3.5-5.1)
[2021-08-22] MEDS: INSULIN ASPART PER UNIT SC SCH ×2 (08:12→11:47)
[2021-08-22] MEDS: PANTOprazole 40 MG TAB PO SCH (08:13)
[2021-08-22] MEDS: METOPROLOL TARTRATE 50 MG TAB PO SCH (08:13)
[2021-08-22] MEDS: ASPIRIN 81 MG ECTAB PO SCH (08:13)
[2021-08-22] MEDS: ATORVASTATIN 40 MG TAB PO SCH (08:13)
[2021-08-22] MEDS: TICAGRELOR 90 MG TAB PO SCH (08:13)
[2021-08-22] MEDS: LOSARTAN POTASSIUM 25 MG TAB PO SCH (08:13)
--- NOTE | 2021-08-22 13:05 | Discharge Summary ---
Date of Service August 22, 2021 Admission HPI Per Admitting Provider 61 y/o M Hx GERD, HTN, DM II. Presents with intermittent CP radiating to his L arm and accompanied by SOB x 1 day. On arrival to the ER ST elevation were noted on EKG. Initial trop was 1735. 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 High LVEDP was noted toward during the procedure and he received a dose of Lasix as well. The pt is resting comfortably following the procedure. He denies CP or SOB. Additional labs are notable for mild microcytic anemia. PMH: 1) HTN 2) DM II 3) GERD 4) Obese 5) CAD - STEMI - ostial and mid LAD stents Surgical: Denies prior surgery Social: Rare cigar, social ETOH. Family: father CVA Principal Diagnosis STEMI Discharge Exam General: AAO x 3, no distress ENT: No erythema or exudates, no thrush Eyes: LENNOX, EOMI Head and neck: Normocephalic, atraumatic, No JVD, neck is supple. Chest/heart: Nontender, S1,2, RRR, no murmurs, no gallops Lungs: CTAB, no wheezing or crackles Abdomen: Nontender, nondistended, BS+ Neuro: AAO x 3, speech is clear, no unilateral weakness or loss of sensation, coordination intact Musculoskeletal: No joint inflammation, muscle tenderness, FROM Skin: No acute rashes or ulcers - bruising of R arm at insertion of cath without significant hematoma Extremities: No clubbing, cyanosis, edema Discharge Data Allergies Allergy/AdvReac Type Severity Reaction Status Date / Time grass pollen Allergy Mild Sneezing Verified 08/20/21 22:27 DUST MITES Allergy Mild Sneezing Uncoded 08/20/21 22:27 Consultations 08/20/21 23:07 ED Decision to Admit Stat 08/20/21 23:49 Consult Swing Ride Operator Routine 08/21/21 00:21 Consult Cardiac Rehabilitation Routine Procedures Performed Operation Date: 08/20/21 23:30 Actual Procedures p Drug Eluting Stent SGl Vessel - Usama Covington MD p Cath, Left with Cors and Vent - Usama Covington MD s Cineradiography w/Routine Exam - Usama Covington MD Ordered Studies 08/20/21 22:42 CL Cath Imgs for PACS use only Stat Hospital Course (1) STEMI (ST elevation myocardial infarction): 61 y/o M Hx GERD, HTN, DM II. Presents with intermittent CP radiating to his L arm and accompanied by SOB x 1 day. On arrival to the ER ST elevation were noted on EKG. Initial trop was 1735. 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 High LVEDP was noted toward during the procedure and he received a dose of Lasix as well. The pt is resting comfortably following the procedure. He denies CP or SOB. Additional labs are notable for mild microcytic anemia. 1) STEMI - provided with Brilinta, Heparin, metoprolol, high-intensity statin. Cardiology following. D/W Cardiology: patient will be placed on: losartan 25 mg PO daily, metoprolol succinate decreased to 25 mg PO daily due to patient having vasovagal episode and also having perceived orthostasis. continue brillinta/ ASA 2) Anemia - microcytic - as he is taking Heparin and Brilinta, stable, may recommend rechecking as an outpatient. 3) HTN - hypertensive post procedure - restart losartan, cont metoprolol 4) DM II - sliding scale / ICU protocol 5) GERD - cont PPi Full code - full dose Heparin Total Time Total Time Spent Total Time Spent (In Minutes): 40 Discharge Plan Discharge Items Patient Disposition: Home - Self-Care Reason For Visit: STEMI Discharge Diagnosis: STEMI Condition on Discharge: Fair Activity: Resume your previous activity Non-emergency contact: Primary Care Provider Call non-emergency contact if: you have any medication questions Follow-up/Referrals: Jerel Medina MD [Primary Care Provider] - (Please schedule a post hospital dc follow-up appointment with your pcp within 1-2 weeks. ) Diet: Carb Consistent or DM2 and Heart Healthy Addtl Attending Provider Instructions: Recommend close followup with PCP in 1-2 weeks. Cardiology will arrange followup with you. Continue Brillinta tonight Hold Atorvastatin as you received it today. First home dose will be tomorrow n ight. Home Care: * Take your medications exactly as directed. Don't skip doses. * Remember that recovery after a heart attack takes time. Plan to rest for at lease 4-8 weeks while you recover. Then return to normal activity when your doctor says it's okay. * Ask your doctor about joining a heart rehabilitation program. * Tell your doctor if you are feeling depressed. Feelings of sadness are common after a heart attack, but it is important that you speak to someone if you are feeling overwhelmed by these feelings. * If you are having chest pain, call 911 for an ambulance. Do NOT drive yourself to the hospital. * Ask your family members to learn CPR. * Learn to take your own blood pressure and pulse. Keep a record of your results. Ask your doctor when you should seek emergency medical attention. He or she will tell you which blood pressure reading is dangerous. Lifestyle Changes: * Maintain a healthy weight. Get help to lose any extra pounds. * Cut back on salt. * Limit canned, dried, packaged, and fast foods. * Don't add salt to your food. * Season foods with herbs instead of salt when you cook. * Break the smoking habit. Enroll in a stop-smoking program to improve your chances of success. * Limit fatty foods. * Ask your doctor about having your lipid levels checked regularly. * Build up your activity according to your doctor's recommendation. * Ask your doctor when it's okay to resume sexual activity. * Tell your doctor about any erectile dysfunction (ED) medication you are taking. Some ED medications are not safe if you take certain heart medications. * Try to manage stress. Follow Up: It is important for you to keep your follow up appointments with your medical provider. Pending Studies at Discharge: No Stand-Alone Forms: My [facility], Smoking Cessation Medications and DC Order Prescriptions: New Brilinta 90 mg Tablet 90 mg PO BID Qty: 60 RF: 0 losartan 25 mg Tablet 25 mg PO QAM Qty: 30 RF: 0 aspirin 81 mg Tablet,Delayed Release (Dr/Ec) 81 mg PO QAM Qty: 30 RF: 0 pantoprazole 40 mg Tablet,Delayed Release (Dr/Ec) 40 mg PO QAM Qty: 30 RF: 0 metoprolol succinate 25 mg tablet extended release 24 hr 25 mg PO DAILY Qty: 30 RF: 0 atorvastatin 80 mg tablet 80 mg PO PM Qty: 30 RF: 0 Continued metformin 750 mg Tablet Extended Release 24 Hr 750 mg PO BID RF: 0 Discontinued losartan 50 mg Tablet 50 mg PO QAM RF: 0 omeprazole 20 mg Capsule,Delayed Release(Dr/Ec) 20 mg PO DAILYBB RF: 0 Discharge Orders: Discharge Order (Routine); Ordered 08/22/21 Ordered By: Ronny Steel/Other Patient Handouts: High Blood Sugar (Hyperglycemia), Hypoglycemia (Low Blood Sugar), Managing Type 2 Diabetes, Diabetes: Meal Planning Admission Data Admit Date/Time: 08/20/21 23:49 Attending Provider: Ronny Curtis Admit Provider: Usama Covington Primary Care Provider: Jerel Medina Other Providers: Usama Covington ; Titus Ren Other Interventions: Discharge Summary Assessment (RN) Last Done: 08/22/21 13:33 Coding Level of Care Code D/C DAY MANAGEMENT >30 MINS Diagnoses STEMI (ST elevation myocardial infarction) I21.3 Involved coronary artery: unspecified coronary artery
--- NOTE | 2021-08-22 14:06 | Cardiology Progress Note ---
Date of Service August 22, 2021 Assessment & Plan (1) CAD (coronary artery disease): Plan: Anterior STEMIpost PCI to proximal/mid LAD with 2 nonoverlapping ABDIEL No significant non-culprit disease 2. Acute heart failure/ischemic cardiomyopathyLVEDP 40 at time of PCI. EF 45% LAD distribution wall motion abnormality. 3. Hypertension 4. Dyslipidemia 5. Type 2 diabetes 6. Mild mitral regurgitation 7. Anemia 8. Vasovagal syncope No recurrent chest pain. Mild orthostatic symptoms and BPs borderline. From a cardiac standpoint Ok with discharge today. Home on: --DAPT with aspirin, ticagrelor Toprol-XL 25mg daily Reduced losartan 25mg daily Continue current statin Likely add SGLT2 as an outpatient Follow-up with me in 1 week. Admission and Anticipated Discharge Date Admission Date: August 20, 2021 Subjective Feeling well this afternoon. No chest pain. This morning mild presyncopal symptoms with first standing. Walked multiple laps in [place]. Had shortness of breath initially which got better. Tele - no events Review of Systems Review of Systems: All systems reviewed & are unremarkable except as noted in HPI & below Physical Exam Physical Exam: General: Comfortable HEENT: Sclerae anicteric Lungs: Clear to auscultation bilaterally, no crackles or wheezes Cardiac: Regular rate and rhythm, no murmurs. Vascular: Right radial artery access site with no ecchymosis, hematoma. Distal pulse and sensation intact. Abdomen: Soft, nontender Extremities: Well perfused, no peripheral edema Neuro: Nonfocal Psych: Alert orient x3, normal affect and mood Results & Data ([facility]) Vital Signs (Past 12 Hours) Vital Signs Temp Pulse Pulse Resp BP BP Pulse Ox 08/22/21 13:33 98.6 F 95 H 20 148/86 H 94 08/22/21 12:00 63 20 08/22/21 11:35 80 08/22/21 10:43 62 23 106/58 L 08/22/21 10:38 106/59 L 08/22/21 10:37 104/62 08/22/21 10:35 98/62 L 08/22/21 10:34 66 11 L 08/22/21 10:00 67 22 08/22/21 08:00 80 25 H 127/63 94 08/22/21 07:28 98.6 F 90 23 107/79 98 08/22/21 07:00 76 13 96 08/22/21 06:45 75 13 94 08/22/21 04:10 74 21 93 08/22/21 04:05 75 24 94 08/22/21 04:00 72 24 104/70 96 08/22/21 03:55 73 22 94 08/22/21 03:50 74 24 92 08/22/21 03:45 75 23 94 08/22/21 03:40 79 17 98 08/22/21 03:35 72 15 94 08/22/21 03:30 71 22 96 08/22/21 03:25 71 22 94 08/22/21 03:20 71 19 95 08/22/21 03:15 94 H 21 91 08/22/21 03:10 77 22 96 08/22/21 03:05 81 24 97 08/22/21 03:00 87 23 95 08/22/21 02:55 78 24 94 08/22/21 02:50 77 21 93 08/22/21 02:45 75 22 96 08/22/21 02:40 81 21 95 08/22/21 02:35 94 H 24 91 08/22/21 02:30 83 18 96 08/22/21 02:25 75 19 96 08/22/21 02:20 71 15 97 08/22/21 02:15 75 13 95 08/22/21 02:10 70 22 96 08/22/21 02:05 73 12 96 08/22/21 02:00 78 16 97 PG Care Time/CCT Total # of Minutes Spent Total Time Spent with Patient: Total time spent is greater than 50% in coordination of care (as documented) at patient's floor/unit and/or counseling patient: Coding Level of Care Code 86152 Subseq Hosp Care Lvl 3 Diagnoses CAD (coronary artery disease) I25.10
[2021-08-22] MEDS ORDERED: metFORMIN HCL 500 MG TAB PO SCH (17:00)
--- NOTE | 2021-08-22 21:19 | Electrocardiogram Report ---
Test Reason : Blood Pressure : / mmHG Vent. Rate : 069 BPM Atrial Rate : 069 BPM P-R Int : 152 ms QRS Dur : 096 ms QT Int : 398 ms P-R-T Axes : 032 054 088 degrees QTc Int : 426 ms Normal sinus rhythm Anterior infarct ACUTE PA / STEMI Abnormal ECG When compared with ECG of 21-AUG-2021 03:29, Premature ventricular complexes are no longer Present Confirmed by Tr Stone ([id number]) on 08/22/2021 9:19:20 PM Referred By: REFERRED SELF Confirmed By:Tr Stone
== END 2021-08-22 14:00 | disposition home or self-care (01) | DRG 247 ==
LOC: ED 22:14 → CC 22:58 → SUATTDRO 23:49 → 1E 23:49